=== PATIENT | female | born 1945 | race Caucasian/White ===

== ENCOUNTER → 2021-04-09 15:31 | Outpatient (REF) | payer MEDICARE, SELFPAY ==
[2021-04-09 15:46] LABS: Microscopic, Urine URINE MICROSCOPIC (MICROSCOPIC)
[2021-04-09 15:48] LABS: Appearance,Urine CLEAR (Clear); Bilirubin,Urine Negative (Negative); Blood, Urine TRACE-I (Negative); Color,Urine YELLOW (Yellow); Glucose,Urine (UA) Negative (Negative); Ketones,Urine Negative (Negative); Leukocyte Esterase,Urine Negative (Negative); Nitrate,Urine POSITIVE (Negative); PH,Urine 6.5 (5.0-8.5); Protein,Urine Negative (Negative); Specific Gravity, Urine 1.015 (1.005-1.030)
[2021-04-09 16:02] LABS: Bacteria,Urine 2+ /lpf; RBC,Urine Occasional #/hpf (0-3)
== END ==
LOC: LAB.DROPOF 15:31
PROVIDERS: Visit Provider Internal Medicine Adolescent Medicine
DX: R31.9 Hematuria, unspecified (principal)
CPT/HCPCS: 81001; 87086; 87088; 87186

== ENCOUNTER → 2021-08-09 07:33 | Outpatient (CLI) | payer MEDICARE, SELFPAY ==
[2021-08-09 07:39] LABS: Microscopic, Urine URINE MICROSCOPIC (MICROSCOPIC)
[2021-08-09 08:12] LABS: Basophils # 0.1 K/mm3 (0-0.2); Basophils % 0.6 % (0.1-2.0); Eosinophils # 0.3 K/mm3 (0.0-0.4); Eosinophils % 2.6 % (0.1-12.0); Hematocrit 45.2 % (37.0-47.0); Hemoglobin 15.1 g/dL (12.2-16.2); Lymphocytes # 2.9 K/mm3 (0.7-4.5); Lymphocytes % 25.1 % (10-50); Mean Corpuscular HGB Conc 33.5 g/dL (31.8-35.4); Mean Corpuscular Hemoglobin 32.8 pg (27.0-31.2); Mean Corpuscular Volume 97.9 fl (81-99); Mean Platelet Volume 7.3 fl (7.4-10.4); Monocytes # 0.7 K/mm3 (0.1-1.0); Neutrophils # 7.5 K/mm3 (1.8-7.8); Neutrophils % 65.6 % (37.0-80.0); Platelet Count 449 K/mm3 (142-424); Red Blood Count 4.62 M/mm3 (4.20-5.40); Red Cell Distribution Width 12.3 % (11.5-17.5); White Blood Count 11.4 K/mm3 (4.8-10.8)
[2021-08-09 08:16] LABS: Appearance,Urine CLEAR (Clear); Bilirubin,Urine Negative (Negative); Blood, Urine Negative (Negative); Color,Urine YELLOW (Yellow); Glucose,Urine (UA) Negative (Negative); Ketones,Urine Negative (Negative); Leukocyte Esterase,Urine Negative (Negative); Nitrate,Urine Negative (Negative); Protein,Urine Negative (Negative); Specific Gravity, Urine 1.015 (1.005-1.030); Urobilinogen,Urine 0.2 EU/dl (0.2)
[2021-08-09 08:46] LABS: Erythrocyte Sedimentation Rate 44 mm/hr (0-30)
[2021-08-09 09:08] LABS: Chloride 106 mmol/L (98-107); Sodium 143 mmol/L (136-145)
[2021-08-09 09:09] LABS: Potassium 4.5 mmoL/L (3.5-5.1)
[2021-08-09 09:12] LABS: Anion Gap 14.5 mEq/L (5-15); Blood Urea Nitrogen 23 mg/dl (7-17); Calcium 9.7 mg/dl (8.4-10.2); Carbon Dioxide 27 mmol/L (22.0-30.0); Estimated Glomerular Filt Rate 70 ml/min (>60); GFR (African American) 85 ML/MIN (>60); Glucose 98 mg/dl (74-100)
[2021-08-09 10:55] LABS: Uric Acid 7.1 mg/dl (2.5-6.2)
== END ==
PROVIDERS: Visit Provider Nurse Practitioner Family
DX: I10 Essential (primary) hypertension (principal); E78.5 Hyperlipidemia, unspecified; F03.91 Unspecified dementia, unspecified severity, with behavioral disturbance; R41.841 Cognitive communication deficit; E55.9 Vitamin D deficiency, unspecified
CPT/HCPCS: 80048; 81001; 84550; 85025; 85651

== ENCOUNTER → 2022-03-20 11:28 | Outpatient (CLI) | payer MEDICARE, SELFPAY | PROVIDERS: PCP Internal Medicine Adolescent Medicine; Visit Provider Internal Medicine Adolescent Medicine | DX: Z01.812 Encounter for preprocedural laboratory examination (principal); Z20.822 Contact with and (suspected) exposure to COVID-19 | CPT/HCPCS: C9803; U0003; U0005 ==

== ENCOUNTER 2022-03-22 05:49 | Day surgery (SDC) | payer MEDICARE, MEDICAID, SELFPAY ==
[2022-03-22 06:30] VITALS: BP 152/82; PULSE 74; RESP 18; TEMP 36.2; O2SAT 98; BMI 34.4
--- NOTE | 2022-03-22 07:02 | HMH.ANESCL ---
[facility] Anesthesia Checklist - Patient Identification Patient Identification: Arm Band - Structural Data Admitted From: Home Planned Operative Procedure/s: Removal of pessary Consent for Planned Operative Procedure(s) Verified: Yes - NPO Status Verified Time NPO: 00:00 - Additional verifications Anesthesia Reactions: No Hx Blood Transfusions: No Blood Transfusion Reaction: No - Airway Assessment C-Spine Mobility Assessed: Yes TMJ Mobility Assessed: Yes Dentition: Poor Dentition (Multiple loose teeth, notified daughter of risk of detal damage. Daughter agrees to proceed.) - Neurological Assessment Level of Consciousness: Awake Hx Seizures: No Numbness or tingling in extremities: No - Anesthesia Plan Anesthesia Risk discussed: Yes Anesthesia Plan: Verified ASA Class: II Anesthesia Type: MAC [facility] History I have reviewed the patient's past medical history: Yes Medical History: Reports:: Dementia Denies:: Cancer, Diabetes Mellitus Type 1, Diabetes Mellitus Type 2, Internal Pacemaker, MRSA, Seizures *Have you ever received a pneumonia vaccine?: Yes *Have you received a flu vaccine this season?: Yes Other Medical History: Denies: Blood Transfusion Reaction Anesthesia experience/problems:: None Other Surgeries: No: Pacemaker Amputation: No Fractures: No - *Social History Last grade of school completed: High school graduate Smoking Status: Former smoker Alcohol Intake: never Substance Use Type: denies use *Occupational Status:: retired Housing: house *Travel in the last 8 weeks: None Family Hx:: No significant family history
[2022-03-22 07:49] VITALS: BP 138/75; PULSE 67; RESP 16; TEMP 35.8; O2SAT 100
[2022-03-22 08:04] VITALS: BP 128/55; PULSE 64; RESP 17; O2SAT 97
--- NOTE | 2022-03-22 08:13 | P.OP_ITS ---
Date of procedure: 03/22/22 Pre-op Diagnosis:: 1. Retained pessary Post-op Diagnosis:: 1. Retained pessary Procedure performed:: 1. Removal of pessary 2. Exam under anesthesia Surgeon:: Pam Vincent DO Staff Design Engineer(s):: N/a HORSERADISH GRINDER:: Jorge Deras Anesthesia: MAC Estimated blood loss (mL): 0 Clinical Note:: Ms Irene Matias is a 76 yo female who to [facility] for scheduled procedure. She was seen in the office on 02/23, with her daughter, from [facility] for pessary removal. Patient has had a pessary in place for pelvic organ prolapse for about 3.5 years with no pessary care. Her daughter noticed a green/dark colored discharge on her pad. Patient has dementia. Operative findings:: Vulva grossly normal. Multiple shallow ulcerations and erosions of vaginal mucosa noted Operative note:: Risks, benefits and alternatives were discussed with the patient. Risks include bleeding, infection and VTE. Patient voiced understanding and agreed to proceed. She was wheeled back to the operating room and placed under MAC without difficulty. She was placed in the dorsal lithotomy position and prepped and draped in normal sterile fashion. Separation of the labia revealed portion of donut pessary. Double tooth tenaculum was used to grasp the pessary. A second single tooth tenaculum was also used to grasp the pessary. Pessary was removed with gentle rocking motion. Malodorous green vaginal discharge was noted coming from the vagina and covering the pessary. Vagina was irrigated with sterile water. Right angle retractors were placed and exam was performed. Multiple areas of shallow ulcerations/erosions were noted. Small amount of bleeding from vaginal pond and introitus noted. Vagina was irrigated again. Hemostasis was noted. Patient was awaken from anesthesia without difficulty. She was transported to the recovery room in stable condition. Patient will be discharged home when awake and ambulating. She was given postop instructions and a prescription for Clindamycin vaginal cream. Condition: stable Disposition: same day Complications:: None
[2022-03-22 08:19] VITALS: BP 124/71; PULSE 69; RESP 17; O2SAT 97
[2022-03-22 08:27] VITALS: BP 124/76; PULSE 78; RESP 18; O2SAT 100
== END 2022-03-22 08:27 ==
LOC: OR 05:53
PROVIDERS: PCP Internal Medicine Adolescent Medicine; Visit Provider Obstetrics & Gynecology
DX: T19.2XXA Foreign body in vulva and vagina, initial encounter (principal); Z96.0 Presence of urogenital implants; L30.4 Erythema intertrigo; Z79.899 Other long term (current) drug therapy
CPT/HCPCS: 57415; 96374

== ENCOUNTER → 2022-04-07 20:10 | Outpatient (CLI) | payer MEDICARE, MEDICAID, SELFPAY ==
[2022-04-07 20:57] LABS: Microscopic, Urine URINE MICROSCOPIC (MICROSCOPIC)
[2022-04-07 21:12] LABS: Appearance,Urine CLOUDY (Clear); Bilirubin,Urine Negative (Negative); Blood, Urine 1+ (Negative); Color,Urine YELLOW (Yellow); Glucose,Urine (UA) Negative (Negative); Ketones,Urine Negative (Negative); Leukocyte Esterase,Urine 1+ (Negative); Nitrate,Urine POSITIVE (Negative); Protein,Urine 2+ (Negative); Urobilinogen,Urine 0.2 EU/dl (0.2)
[2022-04-07 21:14] LABS: WBC,Urine TNTC #/hpf (0-3)
== END ==
PROVIDERS: PCP Nurse Practitioner Family; Visit Provider Nurse Practitioner Family
DX: N39.0 Urinary tract infection, site not specified (principal)
CPT/HCPCS: 81001; 87086

== ENCOUNTER 2022-04-08 22:23 | Inpatient (IN) | payer MEDICARE, MEDICAID, SELFPAY ==
[2022-04-08] VITALS (7 sets, daily range): BP systolic 61–82; BP diastolic 31–50; PULSE 94–118; RESP 22; TEMP 39.8; O2SAT 95; BMI 29.2
--- NOTE | 2022-04-08 22:11 | XR_ITS ---
PROCEDURE INFORMATION: Exam: XR Chest Exam date and time: 04/08/2022 10:36 PM Age: 76 years old Clinical indication: Fever TECHNIQUE: Imaging protocol: Radiologic exam of the chest. Views: 1 view. COMPARISON: No relevant prior studies available. FINDINGS: Lungs: Streaky basilar and peripheral airspace opacities. No lobar consolidation. Pleural spaces: No pneumothorax. Heart/Mediastinum: No cardiomegaly. Bones/joints: Degenerative changes of the shoulders. IMPRESSION: Streaky airspace opacities which are likely atelectatic.
[2022-04-08 22:26] LABS: Coronavirus 19, PCR Not Detected (NotDetected); Influenza A, PCR Not Detected (NotDetected); Influenza B, PCR Not Detected (NotDetected); Microscopic, Urine URINE MICROSCOPIC (MICROSCOPIC)
[2022-04-08 22:27] LABS: Basophils # 0.1 K/mm3 (0-0.2); Basophils % 0.4 % (0.1-2.0); Eosinophils # 0.1 K/mm3 (0.0-0.4); Eosinophils % 0.4 % (0.1-12.0); Hematocrit 45.2 % (37.0-47.0); Hemoglobin 14.2 g/dL (12.2-16.2); Lymphocytes # 0.6 K/mm3 (0.7-4.5); Lymphocytes % 4.4 % (10-50); Mean Corpuscular HGB Conc 31.4 g/dL (31.8-35.4); Mean Corpuscular Hemoglobin 31.6 pg (27.0-31.2); Mean Corpuscular Volume 100.4 fl (81-99); Mean Platelet Volume 8.3 fl (7.4-10.4); Monocytes # 0.5 K/mm3 (0.1-1.0); Monocytes % 3.5 % (1.7-9.3); Neutrophils # 12.4 K/mm3 (1.8-7.8); Neutrophils % 91.4 % (37.0-80.0); Platelet Count 276 K/mm3 (142-424); Red Cell Distribution Width 13.6 % (11.5-17.5); White Blood Count 13.6 K/mm3 (4.8-10.8)
[2022-04-08 22:32] LABS: MANUAL DIFFERENTIAL MANUAL DIFFERENTIAL (MANUAL DIFF)
[2022-04-08 22:33] LABS: Appearance,Urine CLOUDY (Clear); Bilirubin,Urine Negative (Negative); Blood, Urine 2+ (Negative); Color,Urine YELLOW (Yellow); Glucose,Urine (UA) Negative (Negative); Ketones,Urine TRACE (Negative); Leukocyte Esterase,Urine 2+ (Negative); Nitrate,Urine POSITIVE (Negative); Protein,Urine 2+ (Negative); Urobilinogen,Urine 0.2 EU/dl (0.2)
[2022-04-08 22:35] LABS: WBC,Urine TNTC #/hpf (0-3)
[2022-04-08 22:36] LABS: Alanine Aminotransferase 30 U/L (12-78); Albumin Level 3.2 g/dl (3.5-5.0); Alkaline Phosphatase 151 U/L (38-126); Anion Gap 13.2 mEq/L (5-15); Aspartate Amino Transferase 76 U/L (14-36); Bilirubin,Total 0.3 mg/dl (0.2-1.3); Blood Urea Nitrogen 25 mg/dl (7-17); Calcium 8.8 mg/dl (8.4-10.2); Carbon Dioxide 21 mmol/L (22.0-30.0); Chloride 109 mmol/L (98-107); Creatinine Clearance Estimated 38 mL/min (50-200); Estimated Glomerular Filt Rate 29 ml/min (>60); GFR (African American) 36 ML/MIN (>60); Globulin 3.2 g/dL (1.3-3.2); Glucose 118 mg/dl (74-100); Potassium 3.2 mmoL/L (3.5-5.1); Sodium 140 mmol/L (136-145); Total Protein,Serum 6.4 g/dl (6.3-8.2)
--- NOTE | 2022-04-08 22:40 | HMH.EDAMS ---
ED Disposition Clinical Impression: Severe sepsis with acute organ dysfunction, Septic shock, CHAI (acute kidney injury), Elevated troponin UTI (urinary tract infection) Qualifiers: Urinary tract infection type: site unspecified Hematuria presence: without hematuria Qualified Code(s): N39.0 - Urinary tract infection, site not specified Disposition: Admitted As Inpatient Condition on Discharge: Serious Referrals: Jeremy Yoder MD [Primary Care Provider] - - Critical Care Critical Care Time: Yes Attestation: On 04/08/22, the high probability of a clinically significant, sudden or life threatening deterioration of the following system(s) required my full and direct attention, intervention and personal management. The time I documented below is in addition to time spent performing reported procedures but includes the following listed in this critical care notation. Total Critical Care Time: 60 Vital system(s) involved:: Renal Failure, Shock (Septic) My critical care processes included: Assessment & monitoring of V/S, Initial and Re-exams, Data Review/Interpretation, Coordinating Care, Medication Orders and management, Documentation Medical Decision Making - Medical Records Medical records reviewed: Yes: I reviewed the patient's medical records. - Huang Inquiry Pt receiving controlled substance: No Vital Signs: 04/08/22 21:59 04/08/22 22:30 04/08/22 22:53 Temperature 103.7 F H Temperature Source Rectal Pulse Rate 109 H 100 H Pulse Rate [Right] 118 H Respiratory Rate 22 Blood Pressure 61/31 L 73/36 L Blood Pressure [Right Arm] 82/50 L Blood Pressure Mean 41 48 Blood Pressure Mean [Right Arm] 60 02 Sat by Pulse Oximetry 95 Oxygen Delivery Method Room Air 04/08/22 23:00 04/08/22 23:11 04/08/22 23:13 Temperature Temperature Source Pulse Rate 99 H 98 H 96 H Pulse Rate [Right] Respiratory Rate Blood Pressure 74/39 L 73/37 L 68/39 L Blood Pressure [Right Arm] Blood Pressure Mean 54 47 46 Blood Pressure Mean [Right Arm] 02 Sat by Pulse Oximetry 95 95 95 Oxygen Delivery Method 04/08/22 23:16 Temperature Temperature Source Pulse Rate 94 H Pulse Rate [Right] Respiratory Rate Blood Pressure 67/34 L Blood Pressure [Right Arm] Blood Pressure Mean 50 Blood Pressure Mean [Right Arm] 02 Sat by Pulse Oximetry 95 Oxygen Delivery Method - Lab Data Lab results reviewed: Yes: I reviewed the patient's lab results. Lab Results 04/08/22 22:11: WBC 13.6 H, RBC 4.50, Hgb 14.2, Hct 45.2, MCV 100.4 H, MCH 31.6 H, MCHC 31.4 L, RDW 13.6, Plt Count 276, MPV 8.3, Neut % (Auto) 91.4 H, Lymph % (Auto) 4.4 L, [place] % (Auto) 3.5, Eos % (Auto) 0.4, Baso % (Auto) 0.4, Neut # (Auto) 12.4 H, Lymph # (Auto) 0.6 L, [place] # (Auto) 0.5, Eos # (Auto) 0.1, Baso # (Auto) 0.1, Total Counted 100, Neutrophils % (Manual) 93 H, Lymphocytes % (Manual) 5 L, Monocytes % (Manual) 2, Platelet Estimate Normal, RBC Morphology Not Reportable, Macrocytosis 1+, ESR 44 H 04/08/22 22:11: Sodium 140, Potassium 3.2 L, Chloride 109 H, Carbon Dioxide 21 L, Anion Gap 13.2, BUN 25 H, Creatinine 1.70 H, Estimated Creat Clear 38, Estimated GFR 29 L, Est GFR ( Amer) 36 L, Glucose 118 H, Calcium 8.8, Total Bilirubin 0.3, AST 76 H, ALT 30, Alkaline Phosphatase 151 H, C-Reactive Protein 309.1 H, Total Protein 6.4, Albumin 3.2 L, Globulin 3.2, Albumin/Globulin Ratio 1.0 L, Procalcitonin 31.7 H 04/08/22 22:11: Urine Color Yellow, Urine Appearance Cloudy, Urine pH 6.0, Ur Specific [place] 1.020, Urine Protein 2+, Urine Glucose (UA) Negative, Urine Ketones Trace, Urine Blood 2+, Urine Nitrate Positive, Urine Bilirubin Negative, Urine Urobilinogen 0.2, Ur Leukocyte Esterase 2+ A, Urine RBC 10-20, Urine WBC Tntc 04/08/22 22:11: Lactate 2.9 H 04/08/22 22:11: SARS-CoV-2 (PCR) Not detected, Influenza A Untype (PCR) Not detected, Influenza Type B (PCR) Not detected 04/08/22 22:11: Troponin I 0.10 H Result diagrams: 04/08/22 22
--- NOTE | 2022-04-08 22:41 | ECG_ITS ---
APPROVED REPORT Exam: Resting ECG HR:96 bpm ECG Measurements Heart Rate 96 AXES DE 180 P 53 QRSd 104 QRS -32 QT 384 T 17 QTc 438 Conclusion SINUS RHYTHM LEFT AXIS DEVIATION [QRS AXIS < -30] Late r wave progression UNCONFIRMED REPORT Electronically signed by : Jeremy Yoder MD 04/10/2022 21:29:24
[2022-04-08 22:42] LABS: C-Reactive Protein 309.1 mg/L (0-4); Lactic Acid 2.9 mmol/L (0.7-2.1)
[2022-04-08 22:53] LABS: Procalcitonin 31.7 ng/mL (0.0-2.0)
[2022-04-08 22:56] LABS: Erythrocyte Sedimentation Rate 44 mm/hr (0-30)
[2022-04-08 23:00] LABS: Lymphocytes % 5 % (10-50); Macrocytosis 1+; Monocytes % 2 % (2-9); Neutrophils % 93 % (42-76); Platelet Estimate Normal; Total Cells Counted 100
--- NOTE | 2022-04-08 23:21 | PC.NURSE ---
notified of blood pressures, no new orders @ this time
--- NOTE | 2022-04-08 23:54 | PC.NURSE ---
Pt son arrived in ER. Pt addressed son, knew who he was and appeared to be happy to see him. Updated son on pt condition.
[2022-04-09] VITALS (17 sets, daily range): BP systolic 92–161; BP diastolic 44–89; PULSE 68–98; RESP 16–20; TEMP 36.7–37.5; O2SAT 94–99; BMI 28.8; BMI 28.7
[2022-04-09 00:28] LABS: Reflex Lactic Add Lactic Reflex
--- NOTE | 2022-04-09 00:31 | PC.NURSE ---
PT ARRIVED VIA STRETCHER FROM ED W/STAFF @ [phone]
[2022-04-09 01:46] LABS: Lactic Acid Follow Up (RFLX 1) 1.5 mmol/L (0.7-2.1)
[2022-04-09 01:59] LABS: Troponin I 0.08 ng/ml (0.00-0.034)
[2022-04-09 05:06] LABS: Basophils # 0.1 K/mm3 (0-0.2); Basophils % 0.4 % (0.1-2.0); Eosinophils # 0.1 K/mm3 (0.0-0.4); Eosinophils % 0.3 % (0.1-12.0); Hematocrit 42.2 % (37.0-47.0); Hemoglobin 13.4 g/dL (12.2-16.2); Lymphocytes # 1.2 K/mm3 (0.7-4.5); Mean Corpuscular HGB Conc 31.8 g/dL (31.8-35.4); Mean Corpuscular Hemoglobin 31.7 pg (27.0-31.2); Mean Corpuscular Volume 99.5 fl (81-99); Mean Platelet Volume 8.6 fl (7.4-10.4); Monocytes # 1.1 K/mm3 (0.1-1.0); Monocytes % 3.6 % (1.7-9.3); Neutrophils # 28.3 K/mm3 (1.8-7.8); Neutrophils % 91.8 % (37.0-80.0); Platelet Count 348 K/mm3 (142-424); Red Blood Count 4.24 M/mm3 (4.20-5.40); Red Cell Distribution Width 13.6 % (11.5-17.5)
[2022-04-09 05:09] LABS: White Blood Count 30.8 K/mm3 (4.8-10.8)
[2022-04-09 05:26] LABS: Anion Gap 9.2 mEq/L (5-15); Blood Urea Nitrogen 26 mg/dl (7-17); Calcium 8.1 mg/dl (8.4-10.2); Carbon Dioxide 20 mmol/L (22.0-30.0); Chloride 113 mmol/L (98-107); Creatinine Clearance Estimated 45 mL/min (50-200); Estimated Glomerular Filt Rate 37 ml/min (>60); GFR (African American) 44 ML/MIN (>60); Potassium 3.2 mmoL/L (3.5-5.1); Sodium 139 mmol/L (136-145)
[2022-04-09 05:29] LABS: Glucose 154 mg/dl (74-100)
[2022-04-09 05:38] LABS: Troponin I 0.07 ng/ml (0.00-0.034)
--- NOTE | 2022-04-09 05:42 | PC.NURSE ---
Pt can state name only. Will yell profanity at staff. Remains on Levophed gtt. Currently infusing @ 8 mcg/min. VS currently stable. She is afebrile at this time. Remains on RA. LUngs are diminished t/o. F/C draining to bedside with cloudy, purulent, urine. Spoke with daughter who is POA. Pt code status is DNR and on chart.
--- NOTE | 2022-04-09 08:33 | P.CONPHA_ITS ---
[facility] Pharmacy VTE Monitoring - Patient Demographics Admission date: 04/09/22 Report Date: 04/09/22 Time: 08:33 Allergies/Adverse Reactions: Patient Allergies No Known Allergies Allergy (Verified 02/23/22 10:30) Height: 1.68 m Weight: 81.193 kg Patient Problems: Current Active Problems UTI (urinary tract infection) (Acute) Severe sepsis with acute organ dysfunction (Acute) Septic shock (Acute) CHAI (acute kidney injury) (Acute) Elevated troponin (Acute) - VTE Risk Labs: VTE Related Lab Results Hgb 13.4 g/dL (12.2-16.2) 04/09/22 04:55 Hct 42.2 % (37.0-47.0) 04/09/22 04:55 Plt Count 348 K/mm3 (142-424) D 04/09/22 04:55 BUN 26 mg/dl (7-17) H 04/09/22 04:55 Creatinine 1.40 mg/dl (0.52-1.04) H 04/09/22 04:55 Estimated Creat Clear 45 mL/min (50-200) 04/09/22 04:55 VTE Risk Level: Moderate Risk Clinical Trial Participant: No - Prophylaxis VTE Prophylaxis Ordered?: Yes Types of VTE Prophylaxis: TEDS Knee High
--- NOTE | 2022-04-09 08:46 | SW/DCPLANNER ---
Addendum entered by Alia Munoz 04/11/22 10:08: I have updated Chelsea w/ [facility] that patient could return later today or tomorrow. Patient will require a PICC line for IV Rocephin prior to discharge. Patient will require a COVID swab prior to discharge. Original Note: This patient currently resides at [facility]: per Chelsea patient is ICF level of care. I will continue to follow up with Chelsea until patient is medically stable for discharge.
--- NOTE | 2022-04-09 08:48 | HMH.HP ---
*Admission Date: 04/09/22 *Chief complaint: Fever/lethargy *History of present illness: 76-year-old resident of the [facility] who was sent to the ER because of fever of 103 degrees and some lethargy. In the ER she was found to meet sepsis criteria with elevated white count, fever, tachycardia, site of infection seems to be urinary tract. Admitted to the hospital with ceftriaxone therapy and fluids. [facility] History I have reviewed the patient's past medical history: Yes Medical History: Reports:: Dementia, Hyperlipidemia, Hypertension Denies:: Cancer, Diabetes Mellitus Type 1, Diabetes Mellitus Type 2, Internal Pacemaker, MRSA, Seizures *Have you ever received a pneumonia vaccine?: Yes *Have you received a flu vaccine this season?: No Other Medical History: Denies: Blood Transfusion Reaction Other Surgeries: No: Pacemaker Amputation: No Fractures: No - *Social History Smoking Status: Former smoker Alcohol Intake: never Substance Use Type: denies use *Occupational Status:: retired Housing: house *Travel in the last 8 weeks: None Family Hx:: Unable to obtain Review of Systems - Review of Systems Review of systems:: pertinent systems reviewed and negative unless documented below - *Neurologic Reports weakness, Denies localized weakness, Denies headache(s), Denies seizure-like activity Meds Home Medications Medication Instructions Recorded Confirmed Type Acetaminophen [Acetaminophen Extra 500 mg PO DAILY 03/22/22 04/08/22 History Strength] Aspirin [Aspirin 81mg chewable 81 mg PO DAILY 03/22/22 04/08/22 History tab] Colchicine 0.6 mg PO DAILY 03/22/22 04/08/22 History Divalproex Sodium [Depakote] 125 mg PO BID 03/22/22 04/09/22 History Donepezil HCl [Aricept] 10 mg PO DAILY 03/22/22 04/08/22 History Hydrocod/Acet 5/325 mg [[place] 1 tab PO Q8HP PRN 03/22/22 04/09/22 History 5/325mg tablet] LORazepam [Lorazepam 0.5mg Tablet] 0.5 mg PO DAILY 03/22/22 04/08/22 History Memantine HCl [Namenda Titration 1 each PO DAILY 03/22/22 04/08/22 History Pack] Metoprolol Succinate [Metoprolol 100 mg PO DAILY 03/22/22 04/09/22 History Succinate 100mg Tablet*] Mirabegron [Myrbetriq] 50 mg PO DAILY 03/22/22 04/09/22 History Potassium Chloride [Klor-con 20 20 meq PO DAILY 03/22/22 04/09/22 History mEq tablet] Quetiapine Fumarate [Seroquel 50 50 mg PO BID 03/22/22 04/09/22 History mg Tablets] gemfibroziL [Gemfibrozil] 600 mg PO BID 03/22/22 04/09/22 History Cefdinir [Omnicef 300mg Capsule] 300 mg PO BID 04/09/22 04/09/22 History Clindamycin Phosphate [Clindesse] 5 gm VG DAILY 04/09/22 04/09/22 History Pantoprazole Sodium 40 mg PO DAILY 04/09/22 04/09/22 History hydroCHLOROthiazide 12.5 mg PO DAILY 04/09/22 04/09/22 History [Hydrochlorothiazide 12.5mg Tab] Allergies Allergy/AdvReac Type Severity Reaction Status Date / Time No Known Allergies Allergy Verified 02/23/22 10:30 Exam Vital signs and Labs for Last 24 Hours: Temp Pulse Resp BP Pulse Ox 98.2 F 76 16 110/51 L 96 04/09/22 08:00 04/09/22 04:00 04/09/22 04:00 04/09/22 04:00 04/09/22 04:00 Laboratory Results - last 24 hr 04/08/22 22:11: WBC 13.6 H, RBC 4.50, Hgb 14.2, Hct 45.2, MCV 100.4 H, MCH 31.6 H, MCHC 31.4 L, RDW 13.6, Plt Count 276, MPV 8.3, Neut % (Auto) 91.4 H, Lymph % (Auto) 4.4 L, [place] % (Auto) 3.5, Eos % (Auto) 0.4, Baso % (Auto) 0.4, Neut # (Auto) 12.4 H, Lymph # (Auto) 0.6 L, [place] # (Auto) 0.5, Eos # (Auto) 0.1, Baso # (Auto) 0.1, Total Counted 100, Neutrophils % (Manual) 93 H, Lymphocytes % (Manual) 5 L, Monocytes % (Manual) 2, Platelet Estimate Normal, RBC Morphology Not Reportable, Macrocytosis 1+, ESR 44 H 04/08/22 22:11: Sodium 140, Potassium 3.2 L, Chloride 109 H, Carbon Dioxide 21 L, Anion Gap 13.2, BUN 25 H, Creatinine 1.70 H, Estimated Creat Clear 38, Estimated GFR 29 L, Est GFR ( Amer) 36 L, Glucose 118 H, Calcium 8.8, Total Bilirubin 0.3, AST 76 H, ALT 30, Alkaline Phosph
--- NOTE | 2022-04-09 14:38 | PC.NURSE ---
pt's pw is: jessica
--- NOTE | 2022-04-09 14:41 | PC.NURSE ---
late entry: when family was in room rounded on patient, updated family on plan of care, diagnosis and medications patients are getting. no concerns or further questions at this time. obtained a drink for patient. encouraged them to ring out with any needs or questions. bed alarm in place.
--- NOTE | 2022-04-09 17:53 | PC.NURSE ---
Pt has been confused and uncooperative throughout the shift. She has pulled out multiple IV's and is refusing to keep her groundwater monitoring technician on. She has a stahl to bedside draining purulent, straw colored urine. She ambulated to the bathroom with assist x1 in the am but has since been incontinent of bowels. Family has been to visit and was updated on poc. Bed is locked and in the lowest position, call light is within reach.
[2022-04-10] VITALS (7 sets, daily range): BP systolic 110–149; BP diastolic 59–94; PULSE 88–136; RESP 16–18; TEMP 36.5–37.1; O2SAT 94–99; BMI 29.3
--- NOTE | 2022-04-10 05:23 | PC.NURSE ---
pt rested well through the night, pt is confused and alert to name only, pt will cuss at staff when trying to moved, clean or assist with care, skin warm and dry, f/c to bsd with clear yellow urine noted, pt is turn q2 with some redness noted to coccyx area, VSS, lung sounds diminished with some expiratory wheezing noted at times, 02 sats remain 97-99 on room air, no other issues or concerns noted at this time, no changes from previous assessment.
[2022-04-10 06:50] LABS: Chloride 113 mmol/L (98-107); Sodium 143 mmol/L (136-145)
[2022-04-10 06:53] LABS: Alanine Aminotransferase 23 U/L (12-78); Alkaline Phosphatase 110 U/L (38-126); Anion Gap 11.9 mEq/L (5-15); Aspartate Amino Transferase 62 U/L (14-36); Blood Urea Nitrogen 25 mg/dl (7-17); Calcium 7.6 mg/dl (8.4-10.2); Carbon Dioxide 21 mmol/L (22.0-30.0); Creatinine Clearance Estimated 64 mL/min (50-200); Estimated Glomerular Filt Rate 54 ml/min (>60); GFR (African American) 66 ML/MIN (>60); Glucose 94 mg/dl (74-100)
[2022-04-10 06:54] LABS: Albumin Level 2.8 g/dl (3.5-5.0); Albumin/Globulin Ratio 0.9 (1.1-1.8); Globulin 3.1 g/dL (1.3-3.2); Total Protein,Serum 5.9 g/dl (6.3-8.2)
[2022-04-10 06:56] LABS: Bilirubin,Total < 0.1 mg/dl (0.2-1.3)
[2022-04-10 06:59] LABS: Potassium 2.9 mmoL/L (3.5-5.1)
[2022-04-10 07:09] LABS: Basophils # 0.2 K/mm3 (0-0.2); Basophils % 1.3 % (0.1-2.0); Eosinophils % 0.2 % (0.1-12.0); Hemoglobin 12.7 g/dL (12.2-16.2); Lymphocytes # 1.1 K/mm3 (0.7-4.5); Lymphocytes % 7.9 % (10-50); Mean Corpuscular Hemoglobin 31.3 pg (27.0-31.2); Mean Corpuscular Volume 101.2 fl (81-99); Monocytes # 0.6 K/mm3 (0.1-1.0); Monocytes % 4.6 % (1.7-9.3); Neutrophils # 11.8 K/mm3 (1.8-7.8); Platelet Count 240 K/mm3 (142-424); Red Blood Count 4.05 M/mm3 (4.20-5.40); Red Cell Distribution Width 13.8 % (11.5-17.5); White Blood Count 13.7 K/mm3 (4.8-10.8)
[2022-04-10 07:14] LABS: MANUAL DIFFERENTIAL MANUAL DIFFERENTIAL (MANUAL DIFF)
[2022-04-10 08:09] LABS: Anisocytosis 1+; Eosinophils % 1 % (0-3); Hypochromasia 1+; Lymphocytes % 8 % (10-50); Macrocytosis 1+; Monocytes % 2 % (2-9); Neutrophils % 86 % (42-76); Platelet Estimate Normal; Total Cells Counted 100
--- NOTE | 2022-04-10 10:00 | PC.NURSE ---
Patient pulled out IV this AM and refused all meds. Provider on floor making rounds went to speak with patient. Patient refused meds verbally to provider. Provider cleared patient from IV Potassium due to no IV access and patient refusing care. However, provider gave v.o. for Rocephin to be given IM if patient continues to refuse IV. Patients daughter called and was in parking lot and when arrived to room patient agreed to take medication but refused IV.
--- NOTE | 2022-04-10 11:03 | DIET.NUTRFU ---
spoke to provider today during rounds, patient is tolerating current diet MSOFT ground. Her baseline at [place] is regular. Possible discharge today. Dr is okay to change to regular to monitor tolerance and prepare for discharge. She did refuse breakfast today and pull out her IV. he was martinez this morning. Will notify kitchen of changes.
--- NOTE | 2022-04-10 11:53 | HMH.ACPN2 ---
Internal Medicine - PN: Subj *Date: 04/10/22 *Time: 18:08 Interval history: No acute events overnight. Remained afebrile. Labs improving. Blood cultures returned positive for E. coli. Patient uncooperative this morning, not wanting to take her medication. Answers that she wants me to leave the room when I asked questions. Has no complaints. Exam Vital signs and Labs for Last 24 Hours: Temp Pulse Resp BP Pulse Ox 98.7 F 136 H 17 116/78 96 04/10/22 11:03 04/10/22 11:03 04/10/22 11:03 04/10/22 11:03 04/10/22 11:03 Laboratory Results - last 24 hr 04/10/22 05:39: WBC 13.7 H D, RBC 4.05 L, Hgb 12.7, Hct 41.0, MCV 101.2 H, MCH 31.3 H, MCHC 31.0 L, RDW 13.8, Plt Count 240 D, MPV 9.0, Neut % (Auto) 86.0 H, Lymph % (Auto) 7.9 L, [place] % (Auto) 4.6, Eos % (Auto) 0.2, Baso % (Auto) 1.3, Neut # (Auto) 11.8 H, Lymph # (Auto) 1.1, [place] # (Auto) 0.6, Eos # (Auto) 0.0, Baso # (Auto) 0.2, Total Counted 100, Neutrophils % (Manual) 86 H, Band Neutrophils % 3.0, Lymphocytes % (Manual) 8 L, Monocytes % (Manual) 2, Eosinophils % (Manual) 1, Platelet Estimate Normal, Hypochromasia 1+, Anisocytosis 1+, Macrocytosis 1+ 04/10/22 05:39: Sodium 143, Potassium 2.9 L*, Chloride 113 H, Carbon Dioxide 21 L, Anion Gap 11.9, BUN 25 H, Creatinine 1.00 D, Estimated Creat Clear 64, Estimated GFR 54 L, Est GFR ( Amer) 66 D, Glucose 94, Calcium 7.6 L, Total Bilirubin < 0.1 L, AST 62 H, ALT 23, Alkaline Phosphatase 110, Total Protein 5.9 L, Albumin 2.8 L D, Globulin 3.1, Albumin/Globulin Ratio 0.9 L I & O for Last 24 hours: Intake & Output 04/07/22 04/08/22 04/09/22 04/10/22 23:59 23:59 23:59 23:59 Intake Total 737 / 737 1956 Output Total 850 / 1050 400 / 400 Balance -113 / -313 1557 / 1557 Weight 82.1 kg 81 kg 82.752 kg Microbiology Reports for the Last 24 Hours: Microbiology 04/08/22 22:11 Blood Blood Culture - Preliminary Gram Negative Rods 04/08/22 22:11 Blood Blood Culture - Preliminary Gram Negative Rods 04/08/22 22:11 Urine,Catheterized Urine Culture - Preliminary Narrative: - Constitutional No acute distress, chronically ill appearing, not answering questions, refusing meds on exam. uncooperative. - *Routine HEENT Exam Head: Present: normocephalic Eye: Present: EOMI, PERRL ENT: Present: mucous membranes dry - *Routine Neck Exam Present: supple. Absent: lymphadenopathy - *Routine Respiratory Exam Present: rhonchi - *Routine Cardiovascular Exam Present: RRR - *Routine Abdominal Exam Present: soft, normoactive bowel sounds, non tender - *Routine Extremities Exam Absent: cyanosis, clubbing, edema - *Routine Skin Exam Present: warm. Absent: rash - *Routine Neurological Exam Present: alert, oriented to self Assessment and Plan (1) E. coli sepsis Status: Acute Category: Medical Code(s): A41.51 - Sepsis due to Escherichia coli [E. coli] (2) Severe sepsis with acute organ dysfunction Status: Acute Category: Medical Code(s): A41.9 - Sepsis, unspecified organism; R65.20 - Severe sepsis without septic shock (3) CHAI (acute kidney injury) Status: Acute Category: Medical Code(s): N17.9 - Acute kidney failure, unspecified (4) Septic shock Status: Acute Category: Medical Code(s): A41.9 - Sepsis, unspecified organism; R65.21 - Severe sepsis with septic shock (5) UTI (urinary tract infection) Status: Acute Qualifiers: Urinary tract infection type: site unspecified Hematuria presence: without hematuria Qualified Code(s): N39.0 - Urinary tract infection, site not specified Category: Medical Code(s): N39.0 - Urinary tract infection, site not specified (6) Dementia with behavioral disturbance Status: Chronic Category: Medical Code(s): F03.91 - Unspecified dementia with behavioral disturbance - Assessment and plan all Dx Assessment and Plan for all problems:: 80-y
--- NOTE | 2022-04-10 20:48 | PC.NURSE ---
Patient VSS, continues to refuse IV access. Shows no s/s of acute distress noted, call light in reach, bed at lowest level for safety; will continue to monitor.
[2022-04-11] VITALS: BP 160/89; PULSE 89; RESP 18; TEMP 36.9; O2SAT 99
--- NOTE | 2022-04-11 | PC.NURSE ---
Verified with Macho from nightwatch proper way to mix Rocephin IM. Mix 2.1 ml of NS into each 1gm vial of Rocephin for a total of 4.2ml to be given IM. Read back, verified, and carried out.
[2022-04-11 04:00] VITALS: BP 145/74; PULSE 88; RESP 18; TEMP 36.7; O2SAT 98
[2022-04-11 08:00] VITALS: BP 111/70; PULSE 80; RESP 16; TEMP 36.4; O2SAT 97
--- NOTE | 2022-04-11 09:26 | XR_ITS ---
FINAL REPORT CLINICAL HISTORY: Confirm PICC line placement COMPARISON: 04/08/2022 FINDINGS: SINGLE-VIEW CHEST The heart size is normal. The mediastinum is normal. Left PICC line tip terminates in the SVC. The lungs are underinflated. The previously identified atelectasis at the right base has improved. There is new, left lower lobe atelectasis. There is no pneumothorax. IMPRESSION: Left PICC line tip terminates in the SVC. New left lower lobe atelectasis. Reviewed, Interpreted and Dictated by Sameer Lozano MD Transcribed by Kiley Connor Authenticated and [facility]
--- NOTE | 2022-04-11 09:41 | PC.NURSE ---
updated patient family on plan of care. picc line, dc of favio and possible discharge back to snf
--- NOTE | 2022-04-11 11:41 | PC.NURSE ---
PER Sharona NARAYAN, RN [phone]: NO ACUTE CHANGE. PT HAS BEEN ENCOURAGED TO TURN Q2H. HAN IN PLACE DRAINING CLEAR YELLOW URINE. BED ALARM ON FOR PATIENT SAFETY. CALL LIGHT WITHIN REACH.
--- NOTE | 2022-04-11 12:00 | P.PN_ITS ---
Subjective *Date: 04/11/22 *Time: 12:00 Interval history: Patient is remained stable overnight. No oxygen requirement. Still continues to be demented but is little bit less combative today. Medical Exam Vital signs and Labs for Last 24 Hours: Temp Pulse Resp BP Pulse Ox 97.6 F 80 16 111/70 97 04/11/22 08:00 04/11/22 08:00 04/11/22 08:00 04/11/22 08:00 04/11/22 08:00 Laboratory Results - last 24 hr 04/08/22 22:11: Urine Color Yellow, Urine Appearance Cloudy, Urine pH 6.0, Ur Specific [place] 1.020, Urine Protein 2+, Urine Glucose (UA) Negative, Urine Ketones Trace, Urine Blood 2+, Urine Nitrate Positive, Urine Bilirubin Negative, Urine Urobilinogen 0.2, Ur Leukocyte Esterase 2+ A, Urine RBC 10-20, Urine WBC Tntc I & O for Labs for Last 24 Hours: Intake & Output 04/09/22 04/10/22 04/11/22 04/12/22 11:59 11:59 11:59 11:59 Intake Total 0 / 0 2694 / 2694 480 / 480 Output Total 100 / 100 1150 / 1150 1575 / 1575 Balance -100 / -100 1544 / 1544 -1095 / -1095 Weight 178 lb 9.191 oz 182 lb 7 oz Microbiology Reports for the Last 24 Hours: Microbiology 04/08/22 22:11 Urine,Catheterized Urine Culture - Preliminary Gram Negative Rods 04/08/22 22:11 Blood Blood Culture - Preliminary Gram Negative Rods 04/08/22 22:11 Blood Blood Culture - Preliminary Gram Negative Rods Comment:: Patient is more pleasant and cooperative, does appear to be pale. Lungs are clear however, heart rate regular. Abdomen soft. No significant edema. Neurologically no focal deficit except for her dementia. Assessment and Plan *Assessment and plan (1) UTI (urinary tract infection): Status: Acute Qualifiers: Hematuria presence: without hematuria Urinary tract infection type: site unspecified Qualified Code(s): N39.0 - Urinary tract infection, site not specified Category: Medical Code(s): N39.0 - Urinary tract infection, site not specified (2) Severe sepsis with acute organ dysfunction: Status: Acute Category: Medical Code(s): A41.9 - Sepsis, unspecified organism; R65.20 - Severe sepsis without septic shock (3) CHAI (acute kidney injury): Status: Acute Category: Medical Code(s): N17.9 - Acute kidney failure, unspecified (4) E. coli sepsis: Status: Acute Category: Medical Code(s): A41.51 - Sepsis due to Escherichia coli [E. coli] (5) Dementia with behavioral disturbance: Status: Chronic Category: Medical Code(s): F03.91 - Unspecified dementia with behavioral disturbance Assessment and plan all Dx Plan of Treatment: 1. E. coli sepsis-remains on antibiotic coverage. Await final sensitivity report. 2. PICC line will be placed today. Transfer back to half-way tomorrow if this goes well. 3. Check labs this morning given her pallor.
[2022-04-11 16:00] VITALS: BP 156/77; PULSE 79; RESP 16; TEMP 36.6; O2SAT 100
--- NOTE | 2022-04-11 18:45 | PC.NURSE ---
P HAS SLEPT MOST OF SHIFT, ALERT X1. CATHETER REMOVED, PT AMBULATES WITH X1 ASSIST TO BR. PICC PLACED, TOLERATED WELL. DAUGHTER HAS CALLED AND BEEN UPDATED SINCE GETTING PICC. PT CURRENTLY SITTING IN CHAIR AT BEDSIDE. NO COMPLAINTS AT THIS TIME. PT CAN AMADEO=OME AGITATING AND COMBATIVE WHEN CHANGING. BED ALARM IN PLACE.
[2022-04-11 20:00] VITALS: BP 147/83; PULSE 83; RESP 18; TEMP 36.8; O2SAT 100
[2022-04-11 23:44] VITALS: BP 139/82; PULSE 88; RESP 20; TEMP 36.9; O2SAT 98
[2022-04-12 04:00] VITALS: BP 155/84; PULSE 87; RESP 19; TEMP 36.9; O2SAT 100
--- NOTE | 2022-04-12 04:20 | PC.NURSE ---
pt has rested throughout the night. alert and oriented to self. no complaints of pain this shift. incontinent of bladder and bowel. turned and repositioned Q2 hrs. call light is in reach, bed alarm is on and functioning.
[2022-04-12 05:00] VITALS: BMI 29.0
[2022-04-12 08:00] VITALS: BP 150/80; PULSE 95; RESP 16; TEMP 36.6; O2SAT 98
[2022-04-12 08:19] LABS: Basophils # 0.1 K/mm3 (0-0.2); Basophils % 1.2 % (0.1-2.0); Eosinophils # 0.3 K/mm3 (0.0-0.4); Eosinophils % 2.7 % (0.1-12.0); Hematocrit 40.2 % (37.0-47.0); Hemoglobin 12.7 g/dL (12.2-16.2); Lymphocytes # 1.6 K/mm3 (0.7-4.5); Lymphocytes % 14.6 % (10-50); Mean Corpuscular HGB Conc 31.5 g/dL (31.8-35.4); Mean Corpuscular Hemoglobin 30.9 pg (27.0-31.2); Mean Corpuscular Volume 98.1 fl (81-99); Mean Platelet Volume 8.7 fl (7.4-10.4); Monocytes # 0.8 K/mm3 (0.1-1.0); Monocytes % 7.4 % (1.7-9.3); Platelet Count 249 K/mm3 (142-424); Red Cell Distribution Width 13.7 % (11.5-17.5); White Blood Count 10.8 K/mm3 (4.8-10.8)
[2022-04-12 08:50] LABS: Blood Urea Nitrogen 11 mg/dl (7-17); Calcium 8.2 mg/dl (8.4-10.2); Carbon Dioxide 21 mmol/L (22.0-30.0); Chloride 114 mmol/L (98-107); Creatinine Clearance Estimated 64 mL/min (50-200); Estimated Glomerular Filt Rate 82 ml/min (>60); GFR (African American) 99 ML/MIN (>60); Glucose 89 mg/dl (74-100); Sodium 142 mmol/L (136-145)
[2022-04-12 08:55] LABS: Coronavirus 19, PCR Not Detected (NotDetected); Influenza A, PCR Not Detected (NotDetected); Influenza B, PCR Not Detected (NotDetected)
--- NOTE | 2022-04-12 08:59 | EXP.DC.SUM ---
General Admission date:: 04/09/22 Discharge date: 04/12/22 HPI HPI HPI: 76-year-old white female, long-term senior living resident who suffers from dementia and multiple other medical problems whose had a fever at the senior living over the 48 hours before admission. Placed on cefdinir for probable UTI but continued to do poorly and was brought to the emergency department. In the emergency department she met criteria for SIRS/septic shock. And was admitted to hospital for IV antibiotics. Please see H&P for details. Exam Data for Last 24 hours Vital signs and Labs for Last 24 Hours: Temp Pulse Resp BP Pulse Ox 98 F 95 H 16 150/80 H 98 04/12/22 08:00 04/12/22 08:00 04/12/22 08:00 04/12/22 08:00 04/12/22 08:00 Laboratory Results - last 24 hr 04/08/22 22:11: Urine Color Yellow, Urine Appearance Cloudy, Urine pH 6.0, Ur Specific [place] 1.020, Urine Protein 2+, Urine Glucose (UA) Negative, Urine Ketones Trace, Urine Blood 2+, Urine Nitrate Positive, Urine Bilirubin Negative, Urine Urobilinogen 0.2, Ur Leukocyte Esterase 2+ A, Urine RBC 10-20, Urine WBC Tntc 04/12/22 07:43: WBC 10.8, RBC 4.10 L, Hgb 12.7, Hct 40.2, MCV 98.1, MCH 30.9, MCHC 31.5 L, RDW 13.7, Plt Count 249, MPV 8.7, Neut % (Auto) 74.0, Lymph % (Auto) 14.6, [place] % (Auto) 7.4, Eos % (Auto) 2.7, Baso % (Auto) 1.2, Neut # (Auto) 8.0 H, Lymph # (Auto) 1.6, [place] # (Auto) 0.8, Eos # (Auto) 0.3, Baso # (Auto) 0.1 04/12/22 07:43: Sodium 142, Potassium 4.0 D, Chloride 114 H, Carbon Dioxide 21 L, Anion Gap 11.0, BUN 11 D, Creatinine 0.70 D, Estimated Creat Clear 64, Estimated GFR 82, Est GFR ( Amer) 99 D, Glucose 89, Calcium 8.2 L I & O for Last 24 hours: Intake & Output 04/09/22 04/10/22 04/11/22 04/12/22 11:59 11:59 11:59 11:59 Intake Total 0 / 0 2694 / 2694 480 / 480 360 / 360 Output Total 100 / 100 1150 / 1150 2375 / 2375 300 / 300 Balance -100 / -100 1544 / 1544 -1895 / -1895 60 / 60 Weight 178 lb 9.191 oz 182 lb 7 oz 181 lb 1 oz Microbiology Reports for the Last 24 Hours: Microbiology 04/08/22 22:11 Urine,Catheterized Urine Culture - Preliminary Gram Negative Rods Gram Negative Rods#2 Constitutional Constitutional: no acute distress and chronically ill appearing *Routine HEENT Exam Head: Present normocephalic Eye: Present EOMI and PERRL ENT: Present mucous membranes moist *Routine Neck Exam Neck: Present supple; Absent lymphadenopathy *Routine Respiratory Exam Respiratory: Present CTA bilaterally *Routine Cardiovascular Exam Cardiovascular: Present RRR and murmur *Routine Abdominal Exam Abdominal: Present soft and normoactive bowel sounds; Absent tenderness *Routine Rectal Exam Rectal:: deferred *Routine Genitalia Exam Genitalia:: deferred *Routine Extremities Exam Extremities: Absent cyanosis, clubbing or edema Comments: Newly inserted PICC line in good position *Routine Skin Exam Skin: Present warm; Absent rash *Routine Neurological Exam Neurological: Present alert and altered mental status Comments: Dementia at baseline. Follows some commands. Occasionally agitated but overall pleasant and smiles. Hospital Course Hospital Course Hospital Course: Patient was admitted to hospital. Placed on ceftriaxone. Blood cultures grew E. coli, along with urine culture. This was treated with ceftriaxone as noted, and she improved from a febrile illness perspective. She was able to eat well. Given her positive blood cultures and significant illness it was deemed she would need IV antibiotics for 2 weeks and a PICC line was placed. She is afebrile. White counts have improved and she is eating well. She will be transferred back to [facility] today. She will need ceftriaxone 1 g IV daily for the next 10 days to finish her course. She has been mildly hypokalemic here, and she will need a BMP and a CBC in 2 days. Otherwise diet, activity and previous meds will contin
--- NOTE | 2022-04-13 13:22 | CARE MANAGER ---
Contacted [facility] and spoke with Carla. She states that the patient is doing well and is acting more like herself. She is receiving her IV antibiotics. Denies any questions or concerns. YAQUELIN Hightower
== END 2022-04-12 10:25 | DRG 871 ==
LOC: ER 23:57 → 2ND 04-09 00:20
PROVIDERS: Admitting Provider Internal Medicine Adolescent Medicine; Emergency Provider Emergency Medicine; PCP Internal Medicine Adolescent Medicine; Visit Provider Internal Medicine Adolescent Medicine
DX: A41.51 Sepsis due to Escherichia coli [E. coli] (principal); R65.21 Severe sepsis with septic shock; N39.0 Urinary tract infection, site not specified; N17.9 Acute kidney failure, unspecified; F03.91 Unspecified dementia, unspecified severity, with behavioral disturbance; Z87.891 Personal history of nicotine dependence; F03.90 Unspecified dementia, unspecified severity, without behavioral disturbance, psychotic disturbance, mood disturbance, and anxiety; E87.6 Hypokalemia
CPT/HCPCS: 36569; 36410; 36415; 51702; 71045; 80048; 80053; 81001; 83605; 84145; 84484; 85007; 85025; 85651; 86140; 87040; 87077; 87086; 87088; 87186; 93005; 99291; C1751; C9803; J0696; U0003; U0005

== ENCOUNTER → 2022-04-15 00:41 | Outpatient (REF) | payer MEDICARE, MEDICAID, SELFPAY ==
[2022-04-15 01:17] LABS: Basophils # 0.1 K/mm3 (0-0.2); Basophils % 0.8 % (0.1-2.0); Eosinophils # 0.3 K/mm3 (0.0-0.4); Eosinophils % 2.7 % (0.1-12.0); Hematocrit 39.2 % (37.0-47.0); Hemoglobin 12.1 g/dL (12.2-16.2); Lymphocytes # 2.5 K/mm3 (0.7-4.5); Lymphocytes % 20.8 % (10-50); Mean Corpuscular Hemoglobin 30.3 pg (27.0-31.2); Mean Platelet Volume 8.8 fl (7.4-10.4); Monocytes # 0.9 K/mm3 (0.1-1.0); Monocytes % 7.6 % (1.7-9.3); Neutrophils # 8.3 K/mm3 (1.8-7.8); Neutrophils % 68.1 % (37.0-80.0); Platelet Count 457 K/mm3 (142-424); Red Cell Distribution Width 13.8 % (11.5-17.5); White Blood Count 12.1 K/mm3 (4.8-10.8)
[2022-04-15 01:23] LABS: Anion Gap 8.6 mEq/L (5-15); Blood Urea Nitrogen 9 mg/dl (7-17); Calcium 8.3 mg/dl (8.4-10.2); Carbon Dioxide 26 mmol/L (22.0-30.0); Chloride 111 mmol/L (98-107); Estimated Glomerular Filt Rate 82 ml/min (>60); GFR (African American) 99 ML/MIN (>60); Glucose 67 mg/dl (74-100); Potassium 4.6 mmoL/L (3.5-5.1); Sodium 141 mmol/L (136-145)
== END ==
LOC: LAB.DROPOF 00:41
PROVIDERS: Visit Provider Internal Medicine Adolescent Medicine
DX: A41.9 Sepsis, unspecified organism (principal); A41.51 Sepsis due to Escherichia coli [E. coli]
CPT/HCPCS: 80048; 85025

== ENCOUNTER 2022-06-25 18:49 | Emergency (ER) | payer MEDICARE, MEDICAID, SELFPAY ==
[2022-06-25 18:49] VITALS: BP 166/100; PULSE 70; RESP 16; TEMP 37.1; O2SAT 100; BMI 38.7
--- NOTE | 2022-06-25 19:05 | XR_ITS ---
PROCEDURE INFORMATION: Exam: XR Left Knee Exam date and time: 06/25/2022 7:25 PM Age: 76 years old Clinical indication: Injury or trauma; Fall; Blunt trauma; Knee; Left; Additional info: Fall, knee pain TECHNIQUE: Imaging protocol: Radiologic exam of the Left knee. Views: 3 views. COMPARISON: No relevant prior studies available. FINDINGS: Bones/joints: There is a displaced distal femur shaft fracture with posterior displacement of the distal fracture fragment. No additional fracture. Soft tissues: Normal. IMPRESSION: There is a displaced distal femur shaft fracture with posterior displacement of the distal fracture fragment. No additional fracture.
--- NOTE | 2022-06-25 19:05 | CT_ITS ---
PROCEDURE INFORMATION: Exam: CT Maxillofacial Without Contrast Exam date and time: 06/25/2022 8:13 PM Age: 76 years old Clinical indication: Injury or trauma; Fall; Additional info: Fall, facial trauma TECHNIQUE: Imaging protocol: Computed tomography of the of the face without contrast. Radiation optimization: All CT scans at this facility use at least one of these dose optimization techniques: automated exposure control; mA and/or kV adjustment per patient size (includes targeted exams where dose is matched to clinical indication); or iterative reconstruction. COMPARISON: CT HEAD/BRAIN WO CON 06/25/2022 8:11 PM FINDINGS: Orbital cavities: Orbits are normal. Globes are unremarkable. Bones/joints: Comminuted bilateral nasal bone fractures. Paranasal sinuses: Small left maxillary air-fluid level. Soft tissues: Unremarkable. IMPRESSION: Comminuted bilateral nasal bone fractures.
--- NOTE | 2022-06-25 19:05 | XR_ITS ---
PROCEDURE INFORMATION: Exam: XR Bilateral Hips Exam date and time: 06/25/2022 7:20 PM Age: 76 years old Clinical indication: Injury or trauma; Fall; Blunt trauma (contusions or hematomas); Bilateral; Pelvic region TECHNIQUE: Imaging protocol: Radiologic exam of the bilateral hips. Views: 2 views of hips with pelvis when performed. COMPARISON: No relevant prior studies available. FINDINGS: Bones/joints: Degenerative changes in bilateral hip joints with joint space narrowing and osteophyte formation. No acute fracture. Soft tissues: Unremarkable. IMPRESSION: No acute findings.
--- NOTE | 2022-06-25 19:06 | CT_ITS ---
PROCEDURE INFORMATION: Exam: CT Head Without Contrast Exam date and time: 06/25/2022 8:11 PM Age: 76 years old Clinical indication: Injury or trauma; Fall; Additional info: Fall, chi TECHNIQUE: Imaging protocol: Computed tomography of the head without contrast. Radiation optimization: All CT scans at this facility use at least one of these dose optimization techniques: automated exposure control; mA and/or kV adjustment per patient size (includes targeted exams where dose is matched to clinical indication); or iterative reconstruction. COMPARISON: No relevant prior studies available. FINDINGS: Brain: Periventricular and subcortical small vessel ischemic changes. Mild atrophy associated. No acute hemorrhage, mass effect, midline shift, or extra-axial fluid collection. Cerebral ventricles: No ventriculomegaly. Paranasal sinuses: Visualized sinuses are unremarkable. No fluid levels. Mastoid air cells: Visualized mastoid air cells are well aerated. Bones/joints: Comminuted fracture of the nasal bones. Soft tissues: Unremarkable. IMPRESSION: 1. Comminuted fracture of the nasal bones. 2. No CT evidence of acute large vessel infarct. 3. No acute intracranial traumatic changes.
--- NOTE | 2022-06-25 19:06 | CT_ITS ---
PROCEDURE INFORMATION: Exam: CT Cervical Spine Without Contrast Exam date and time: 06/25/2022 8:16 PM Age: 76 years old Clinical indication: Injury or trauma; Fall; Additional info: Fall, 76 yo/ams TECHNIQUE: Imaging protocol: Computed tomography of the cervical spine without contrast. Radiation optimization: All CT scans at this facility use at least one of these dose optimization techniques: automated exposure control; mA and/or kV adjustment per patient size (includes targeted exams where dose is matched to clinical indication); or iterative reconstruction. COMPARISON: CT FACIAL BONES WO CON 06/25/2022 8:13 PM FINDINGS: Bones/joints: No acute fracture. Normal alignment. Degenerative changes. C2-C3: No significant disc protrusion. No severe spinal canal stenosis. No significant neural foraminal narrowing. C3-C4: No significant disc protrusion. No severe spinal canal stenosis. No significant neural foraminal narrowing. C4-C5: No significant disc protrusion. No severe spinal canal stenosis. No significant neural foraminal narrowing. C5-C6: No significant disc protrusion. No severe spinal canal stenosis. No significant neural foraminal narrowing. C6-C7: No significant disc protrusion. No severe spinal canal stenosis. No significant neural foraminal narrowing. C7-T1: No significant disc protrusion. No severe spinal canal stenosis. No significant neural foraminal narrowing. Lungs: Lung apices are normal. Soft tissues: Unremarkable. IMPRESSION: No acute traumatic findings.
--- NOTE | 2022-06-25 19:19 | PC.NURSE ---
Pt gone to RAD
--- NOTE | 2022-06-25 19:45 | PC.NURSE ---
PT back from RAD
[2022-06-25 20:00] VITALS: BP 111/68; PULSE 59; O2SAT 98
--- NOTE | 2022-06-25 20:12 | ECG_ITS ---
APPROVED REPORT Exam: Resting ECG HR:56 bpm ECG Measurements Heart Rate 56 AXES KS 179 P 63 QRSd 97 QRS 30 QT 444 T 56 QTc 435 Conclusion SINUS BRADYCARDIA WITH MARKED SINUS ARRHYTHMIA BORDERLINE ECG UNCONFIRMED REPORT Electronically signed by : Jeremy Yoder MD 06/26/2022 18:09:01
[2022-06-25 20:30] VITALS: BP 134/72; PULSE 53; O2SAT 98
[2022-06-25 21:00] VITALS: BP 137/73; PULSE 63; O2SAT 97
--- NOTE | 2022-06-25 21:01 | HMH.EDFALL ---
Discharge Plan Disposition Patient Disposition: Xfer Short-Term Hosp Chief Complaint: Fall Prescriptions Prescriptions: No Action donepezil 10 MG tablet 10 mg PO DAILY metoprolol succinate 100 MG tablet extended release 24 hr 100 mg PO DAILY acetaminophen 500 MG tablet 500 mg PO DAILY potassium chloride 20 MEQ tablet 20 meq PO DAILY divalproex 125 MG tablet,delayed release (DR/EC) 125 mg PO BID aspirin 81 MG tablet,chewable 81 mg PO DAILY memantine 1 EACH tablets,dose pack 1 tab PO HS quetiapine 50 MG tablet 50 mg PO BID mirabegron 50 MG tablet extended release 24 hr 50 mg PO DAILY colchicine 0.6 MG capsule 0.6 mg PO DAILY pantoprazole 40 MG tablet,delayed release (DR/EC) 40 mg PO HS clindamycin phosphate 5 GM cream,extended release 5 gm VG DAILY ceftriaxone 1 gram recon soln 1 g IV DAILY Qty: 10 0RF hydrocodone-acetaminophen 1 TAB tablet 1 tab PO Q8HP PRN (Reason: Pain) Qty: 90 0RF Referrals Follow up/Referrals: Jeremy Yoder MD [Primary Care Provider] - See instructions Clinical Impressions Clinical Impression: Femur fracture, left, Closed fracture nasal bone, Fall Stand Alone Forms Stand Alone Forms: Transfer Record - ED Discharge ED Provider: Vaughn Larson HPI General Chief Complaint: Fall Stated Complaint: FALL Time Seen by Provider: 06/25/22 20:45 Mode of Arrival: EMS Source of Information: Relative, EMS and Medical Record Limitations: Altered Mental Status Description of Symptoms (Recalled from ER Triage Doc. by RN): per senior care pt found laying on the floor. pt has chronic pain and states she in pain in lt knee and has abrasion to nose History of Present Illness HPI Narrative: fell at [facility] today - with lt lower leg pain - no loc complaint: fall Onset (ago): hour(s) Fall from: out of bed Fall witnessed: no Place fall occurred: senior care/SNF Loss of consciousness: none Context: tripped/slipped Location of injury - extremities: Right: knee Severity: moderate Associated symptoms (after fall): headache Related Data Home Medications Medication Instructions Recorded Confirmed acetaminophen 500 mg tablet 500 mg PO DAILY Pain 03/22/22 04/09/22 aspirin 81 mg chewable tablet 81 mg PO DAILY Heart disease 03/22/22 04/08/22 colchicine 0.6 mg capsule 0.6 mg PO DAILY gout 03/22/22 04/08/22 divalproex 125 mg tablet,delayed 125 mg PO BID dementia 03/22/22 04/09/22 release donepezil 10 mg tablet 10 mg PO DAILY dementia 03/22/22 04/08/22 memantine 5 mg-10 mg tablets in a 1 tab PO HS dementia 03/22/22 04/09/22 dose pack metoprolol succinate 100 mg 100 mg PO DAILY High blood pressure 03/22/22 04/09/22 tablet,extended release 24 hr mirabegron 50 mg tablet,extended 50 mg PO DAILY bladder spasms 03/22/22 04/09/22 release 24 hr potassium chloride 20 mEq 20 meq PO DAILY Supplement 03/22/22 04/09/22 tablet,extended release(part/cryst) quetiapine 50 mg tablet 50 mg PO BID dementia 03/22/22 04/09/22 clindamycin phosphate 2 % vaginal 5 gm vaginal DAILY Infection 04/09/22 04/09/22 cream,extended release pantoprazole 40 mg tablet,delayed 40 mg PO HS acid reflux 04/09/22 04/09/22 release Previous Rx's Medication Instructions Recorded ceftriaxone 1 gram intravenous 1 g IV DAILY #10 ea 04/12/22 solution hydrocodone 5 mg-acetaminophen 325 1 tab PO Q8HP PRN Pain #90 tabs 04/12/22 mg tablet Allergies Allergy/AdvReac Type Severity Reaction Status Date / Time No Known Allergies Allergy Verified 02/23/22 10:30 PFSH PFSH Social History Smoking Status: Never smoker alcohol intake: never substance use type: denies use current occupational status: retired Travel in the last 8 weeks: None housing: house caffeine: Yes ROS Obtained: Yes All systems reviewed & no additional complaints except as documented Physical Exam General General appearance: julianne
--- NOTE | 2022-06-25 21:09 | XR_ITS ---
PROCEDURE INFORMATION: Exam: XR Chest Exam date and time: 06/25/2022 9:43 PM Age: 76 years old Clinical indication: Injury or trauma; Fall; Blunt trauma (contusions or hematomas) TECHNIQUE: Imaging protocol: Radiologic exam of the chest. Views: 1 view. COMPARISON: CR XR CHEST PORTABLE PICC PLAC 04/11/2022 1:15 PM FINDINGS: Lungs: Haziness in the left lung could reflect pneumonia versus atelectasis versus asymmetric edema. Linear areas of atelectasis in the right lower lobe. Pleural spaces: Unremarkable. No pleural effusion. No pneumothorax. Heart/Mediastinum: Unremarkable. No cardiomegaly. Bones/joints: Unremarkable. IMPRESSION: Haziness in the left lung could reflect pneumonia versus atelectasis versus asymmetric edema. Linear areas of atelectasis in the right lower lobe.
--- NOTE | 2022-06-25 21:22 | CT_ITS ---
PROCEDURE INFORMATION: Exam: CT Left Lower Extremity Without Contrast, Knee Exam date and time: 06/25/2022 10:31 PM Age: 76 years old Clinical indication: Injury or trauma; Fall; Additional info: Fracture TECHNIQUE: Imaging protocol: CT of the Left lower extremity without contrast was performed. Exam focused on the knee. Radiation optimization: All CT scans at this facility use at least one of these dose optimization techniques: automated exposure control; mA and/or kV adjustment per patient size (includes targeted exams where dose is matched to clinical indication); or iterative reconstruction. COMPARISON: CR XR KNEE LT 3V 06/25/2022 7:25 PM FINDINGS: Bones/joints: Comminuted displaced distal femur fracture. Scattered butterfly fracture fragments. Tricompartmental joint space narrowing and osteophyte formation. Soft tissues: Normal. IMPRESSION: Comminuted displaced distal femur fracture.
--- NOTE | 2022-06-25 21:24 | PC.NURSE ---
nathaniel gave verbal order of 2mg morphine
[2022-06-25 21:26] LABS: Coronavirus 19, PCR Not Detected (NotDetected); Influenza A, PCR Not Detected (NotDetected); Influenza B, PCR Not Detected (NotDetected)
[2022-06-25 21:28] LABS: Microscopic, Urine URINE MICROSCOPIC (MICROSCOPIC)
--- NOTE | 2022-06-25 21:30 | PC.NURSE ---
Pt gone to RAD for CT and XRAY
[2022-06-25 21:31] LABS: Appearance,Urine CLEAR (Clear); Basophils # 0.1 K/mm3 (0-0.2); Basophils % 0.3 % (0.1-2.0); Bilirubin,Urine Negative (Negative); Blood, Urine Negative (Negative); Color,Urine YELLOW (Yellow); Eosinophils # 0.1 K/mm3 (0.0-0.4); Eosinophils % 0.5 % (0.1-12.0); Glucose,Urine (UA) Negative (Negative); Hematocrit 44.9 % (37.0-47.0); Hemoglobin 14.3 g/dL (12.2-16.2); Ketones,Urine Negative (Negative); Leukocyte Esterase,Urine TRACE (Negative); Lymphocytes # 2.4 K/mm3 (0.7-4.5); Lymphocytes % 11.9 % (10-50); Mean Corpuscular Hemoglobin 31.2 pg (27.0-31.2); Mean Corpuscular Volume 97.5 fl (81-99); Mean Platelet Volume 7.8 fl (7.4-10.4); Monocytes # 0.9 K/mm3 (0.1-1.0); Monocytes % 4.6 % (1.7-9.3); Neutrophils # 16.4 K/mm3 (1.8-7.8); Neutrophils % 82.7 % (37.0-80.0); Nitrate,Urine Negative (Negative); PH,Urine 6.5 (5.0-8.5); Platelet Count 449 K/mm3 (142-424); Protein,Urine TRACE (Negative); Red Cell Distribution Width 13.8 % (11.5-17.5); Specific Gravity, Urine 1.015 (1.005-1.030); Urobilinogen,Urine 0.2 EU/dl (0.2); White Blood Count 19.8 K/mm3 (4.8-10.8)
[2022-06-25 21:36] LABS: Chloride 105 mmol/L (98-107); MANUAL DIFFERENTIAL MANUAL DIFFERENTIAL (MANUAL DIFF); Potassium 4.3 mmoL/L (3.5-5.1); Sodium 146 mmol/L (136-145)
[2022-06-25 21:38] LABS: Alanine Aminotransferase 20 U/L (12-78); Aspartate Amino Transferase 32 U/L (14-36); Blood Urea Nitrogen 18 mg/dl (7-17); Creatinine Clearance Estimated 85 mL/min (50-200); Estimated Glomerular Filt Rate 54 ml/min (>60); GFR (African American) 66 ML/MIN (>60)
[2022-06-25 21:39] LABS: Albumin Level 3.7 g/dl (3.5-5.0); Albumin/Globulin Ratio 1.2 (1.1-1.8); Alkaline Phosphatase 111 U/L (38-126); Anion Gap 16.3 mEq/L (5-15); Bilirubin,Total 0.2 mg/dl (0.2-1.3); Calcium 9.5 mg/dl (8.4-10.2); Carbon Dioxide 29 mmol/L (22.0-30.0); Globulin 3.2 g/dL (1.3-3.2); Glucose 123 mg/dl (74-100); Total Protein,Serum 6.9 g/dl (6.3-8.2)
--- NOTE | 2022-06-25 21:42 | PC.NURSE ---
Pt back from RAD
[2022-06-25 21:44] LABS: INR 1.02 (0.9-1.1)
--- NOTE | 2022-06-25 21:51 | PC.NURSE ---
Knee immobilizer placed on left leg
--- NOTE | 2022-06-25 21:51 | PC.NURSE ---
Dr. Jaime mota
[2022-06-25 22:04] LABS: Lymphocytes % 19 % (10-50); Monocytes % 3 % (2-9); Neutrophils % 78 % (42-76); Total Cells Counted 100
[2022-06-25 22:05] LABS: Tear Drop Cells 1+
--- NOTE | 2022-06-25 22:05 | PC.NURSE ---
Dr. Larson spoke with Dr. Sandoval and he advised to call [facility]
[2022-06-25 22:06] LABS: Ovalocytes 1+; Platelet Estimate Normal
--- NOTE | 2022-06-25 22:09 | PC.NURSE ---
Pt accepted at [facility]
[2022-06-25 22:27] LABS: Yeast,Urine 1+ /lpf
[2022-06-25 22:28] VITALS: BP 134/75; PULSE 63; RESP 16; TEMP 36.9; O2SAT 99
== END 2022-06-25 22:59 | disposition short-term general hospital (02) ==
PROVIDERS: Emergency Medicine; Emergency Provider Emergency Medicine; PCP Internal Medicine Adolescent Medicine
DX: S72.92XA Unspecified fracture of left femur, initial encounter for closed fracture (principal); S02.2XXA Fracture of nasal bones, initial encounter for closed fracture; S72.302A Unspecified fracture of shaft of left femur, initial encounter for closed fracture; Z23 Encounter for immunization; W19.XXXA Unspecified fall, initial encounter; Z79.82 Long term (current) use of aspirin; Z79.899 Other long term (current) drug therapy; F03.90 Unspecified dementia, unspecified severity, without behavioral disturbance, psychotic disturbance, mood disturbance, and anxiety; K21.9 Gastro-esophageal reflux disease without esophagitis
CPT/HCPCS: 51702; 70450; 70486; 71045; 72125; 73521; 73562; 73700; 80053; 81001; 85007; 85025; 85610; 90471; 93005; 96374; 99285; C9803; U0003; U0005

== ENCOUNTER 2022-07-11 21:30 | Emergency (ER) | payer MEDICARE, MEDICAID, SELFPAY ==
[2022-07-11 21:30] VITALS: BP 147/86; PULSE 95; RESP 18; TEMP 36.6; O2SAT 95; BMI 31.6
--- NOTE | 2022-07-11 21:37 | XR_ITS ---
PROCEDURE INFORMATION: Exam: XR Chest Exam date and time: 07/11/2022 9:41 PM Age: 77 years old Clinical indication: Injury or trauma; Fall; Blunt trauma (contusions or hematomas) TECHNIQUE: Imaging protocol: Radiologic exam of the chest. Views: 1 view. COMPARISON: CR XR CHEST PORTABLE 06/25/2022 9:43 PM FINDINGS: Lungs: No evidence of pneumonia or interstitial edema. Lungs are hypoaerated. Pleural spaces: Unremarkable. No pleural effusion. No pneumothorax. Heart/Mediastinum: Unremarkable. No cardiomegaly. Bones/joints: Unremarkable. IMPRESSION: 1. No evidence of pneumonia or interstitial edema. 2. No visible fracture.
--- NOTE | 2022-07-11 21:38 | XR_ITS ---
PROCEDURE INFORMATION: Exam: XR Left Foot Exam date and time: 07/11/2022 10:05 PM Age: 77 years old Clinical indication: Injury or trauma; Fall; Blunt trauma; Foot; Left TECHNIQUE: Imaging protocol: Radiologic exam of the Left foot. Views: 3 or more views. COMPARISON: CR XR TIBIA FIBULA LT 2V 07/11/2022 9:40 PM FINDINGS: Bones/joints: Diffuse osteopenia. No visible fracture or dislocation. Soft tissues: No soft tissue abnormality IMPRESSION: No visible fracture or dislocation.
--- NOTE | 2022-07-11 21:38 | XR_ITS ---
PROCEDURE INFORMATION: Exam: XR Left Tibia and Fibula Exam date and time: 07/11/2022 9:40 PM Age: 77 years old Clinical indication: Injury or trauma; Fall; Blunt trauma; Lower leg; Left; Prior surgery TECHNIQUE: Imaging protocol: Radiologic exam of the Left tibia and fibula. Views: 2 views. COMPARISON: CR XR KNEE LT 3V 07/11/2022 9:39 PM FINDINGS: Bones/joints: Refer to dedicated knee radiograph report dictated under a separate accession number for details regarding distal femoral fracture. No visible new fracture or dislocation. Soft tissues: Normal. IMPRESSION: No visible fracture or dislocation.
--- NOTE | 2022-07-11 21:38 | XR_ITS ---
PROCEDURE INFORMATION: Exam: XR Left Femur Exam date and time: 07/11/2022 9:38 PM Age: 77 years old Clinical indication: Injury or trauma; Fall; Blunt trauma; Hip; Left; Prior surgery TECHNIQUE: Imaging protocol: Radiologic exam of the Left femur. Views: 2 views. COMPARISON: CR XR PELVIS 1-2V 07/11/2022 9:36 PM FINDINGS: Bones/joints: Status post ORIF of distal femoral fracture. There is an intramedullary nail with interlocking screws. Alignment has improved. No significant callus formation noted. Soft tissues: Unremarkable. IMPRESSION: 1. No new acute fracture. 2. Status post ORIF of distal femoral fracture without significant callus formation
--- NOTE | 2022-07-11 21:38 | XR_ITS ---
PROCEDURE INFORMATION: Exam: XR Pelvis Exam date and time: 07/11/2022 9:36 PM Age: 77 years old Clinical indication: Injury or trauma; Fall; Blunt trauma (contusions or hematomas); Left; Pelvic region; Prior surgery TECHNIQUE: Imaging protocol: Radiologic exam of the pelvis. Views: 1 or 2 view. COMPARISON: CR XR HIP BI W PEL1V 06/25/2022 7:20 PM FINDINGS: Bones/joints: Intramedullary noted in the left femur. [id number] left hip osteoarthritis. Mild right hip osteoarthritis. No visible fracture or dislocation. Soft tissues: Unremarkable. IMPRESSION: No visible fracture or dislocation.
--- NOTE | 2022-07-11 21:38 | XR_ITS ---
PROCEDURE INFORMATION: Exam: XR Left Knee Exam date and time: 07/11/2022 9:39 PM Age: 77 years old Clinical indication: Injury or trauma; Fall; Blunt trauma; Knee; Left; Prior surgery TECHNIQUE: Imaging protocol: Radiologic exam of the Left knee. Views: 3 views. COMPARISON: CT KNEE LT WO CON 06/25/2022 10:31 PM FINDINGS: Bones/joints: Status post ORIF of distal femoral fracture. There is an intramedullary nail with interlocking screws. No hardware-related complication noted. Fracture alignment has improved. No significant callus formation noted. No joint effusion. Soft tissues: Unremarkable. IMPRESSION: 1. No new acute fracture. 2. Status post ORIF of distal femoral fracture without significant callus formation
--- NOTE | 2022-07-11 22:04 | HMH.EDFALL ---
Discharge Plan Disposition Patient Disposition: Home, Self-Care Chief Complaint: Fall Prescriptions Prescriptions: No Action donepezil 10 MG tablet 10 mg PO DAILY metoprolol succinate 100 MG tablet extended release 24 hr 100 mg PO DAILY acetaminophen 500 MG tablet 500 mg PO DAILY potassium chloride 20 MEQ tablet 20 meq PO DAILY divalproex 125 MG tablet,delayed release (DR/EC) 125 mg PO BID aspirin 81 MG tablet,chewable 81 mg PO DAILY memantine 1 EACH tablets,dose pack 1 tab PO HS quetiapine 50 MG tablet 50 mg PO BID mirabegron 50 MG tablet extended release 24 hr 50 mg PO DAILY colchicine 0.6 MG capsule 0.6 mg PO DAILY pantoprazole 40 MG tablet,delayed release (DR/EC) 40 mg PO HS clindamycin phosphate 5 GM cream,extended release 5 gm VG DAILY ceftriaxone 1 gram recon soln 1 g IV DAILY Qty: 10 0RF hydrocodone-acetaminophen 1 TAB tablet 1 tab PO Q8HP PRN (Reason: Pain) Qty: 90 0RF Referrals Follow up/Referrals: Jeremy Yoder MD [Primary Care Provider] - See instructions Clinical Impressions Clinical Impression: Fall, Injury of lower extremity Instructions Patient Instructions: How to Prevent Falls Discharge ED Provider: Vaughn Larson Fall HPI General Chief Complaint: Fall Stated Complaint: fall, LLE pain Time Seen by Provider: 07/11/22 22:04 Mode of Arrival: EMS Source of Information: Patient, EMS and Medical Record Limitations: Altered Mental Status Description of Symptoms (Recalled from ER Triage Doc. by RN): Per ems, patient had surgery on 07/07/22 to repair a left sided shattered femur with implantation of a cadaver bone. Patient (who also has dementia) attempted to ambulate independly tonight to the restroom and fell. Fall was unwitnessed. Complaints of generalized pain. History of Present Illness HPI Narrative: fall at [facility] with recent orif of distal lt femur fx - pt unable to give specific hx MD complaint: fall Onset (ago): hour(s) Fall from: out of bed Fall witnessed: no Place fall occurred: [facility] Loss of consciousness: none Prolonged down time: no Location of injury - extremities: Left: thigh, knee and lower leg Severity: moderate Related Data Home Medications Medication Instructions Recorded Confirmed acetaminophen 500 mg tablet 500 mg PO DAILY Pain 03/22/22 04/09/22 aspirin 81 mg chewable tablet 81 mg PO DAILY Heart disease 03/22/22 04/08/22 colchicine 0.6 mg capsule 0.6 mg PO DAILY gout 03/22/22 04/08/22 divalproex 125 mg tablet,delayed 125 mg PO BID dementia 03/22/22 04/09/22 release donepezil 10 mg tablet 10 mg PO DAILY dementia 03/22/22 04/08/22 memantine 5 mg-10 mg tablets in a 1 tab PO HS dementia 03/22/22 04/09/22 dose pack metoprolol succinate 100 mg 100 mg PO DAILY High blood pressure 03/22/22 04/09/22 tablet,extended release 24 hr mirabegron 50 mg tablet,extended 50 mg PO DAILY bladder spasms 03/22/22 04/09/22 release 24 hr potassium chloride 20 mEq 20 meq PO DAILY Supplement 03/22/22 04/09/22 tablet,extended release(part/cryst) quetiapine 50 mg tablet 50 mg PO BID dementia 03/22/22 04/09/22 clindamycin phosphate 2 % vaginal 5 gm vaginal DAILY Infection 04/09/22 04/09/22 cream,extended release pantoprazole 40 mg tablet,delayed 40 mg PO HS acid reflux 04/09/22 04/09/22 release Previous Rx's Medication Instructions Recorded ceftriaxone 1 gram intravenous 1 g IV DAILY #10 ea 04/12/22 solution hydrocodone 5 mg-acetaminophen 325 1 tab PO Q8HP PRN Pain #90 tabs 04/12/22 mg tablet Allergies Allergy/AdvReac Type Severity Reaction Status Date / Time No Known Allergies Allergy Verified 02/23/22 10:30 PFSH PFSH Social History Smoking Status: Former smoker alcohol intake: never substance use type: denies use current occupational status: retired Travel in the last 8 weeks: None housing: house caffeine: Yes ROS Ob
[2022-07-11 23:08] VITALS: BP 135/77; PULSE 86; RESP 20; TEMP 36.7; O2SAT 98
== END 2022-07-11 23:22 | disposition home or self-care (01) ==
PROVIDERS: Emergency Provider Emergency Medicine; PCP Internal Medicine Adolescent Medicine
DX: S89.90XA Unspecified injury of unspecified lower leg, initial encounter (principal); S72.92XD Unspecified fracture of left femur, subsequent encounter for closed fracture with routine healing; Z98.890 Other specified postprocedural states; F03.90 Unspecified dementia, unspecified severity, without behavioral disturbance, psychotic disturbance, mood disturbance, and anxiety; W18.30XA Fall on same level, unspecified, initial encounter; Y93.01 Activity, walking, marching and hiking; Y92.129 Unspecified place in nursing home as the place of occurrence of the external cause
CPT/HCPCS: 71045; 72170; 73552; 73562; 73590; 73630; 99285

== ENCOUNTER → 2022-07-18 21:42 | Outpatient (CLI) | payer MEDICARE, MEDICAID, SELFPAY ==
[2022-07-18 21:57] LABS: Microscopic, Urine URINE MICROSCOPIC (MICROSCOPIC)
[2022-07-18 22:41] LABS: Appearance,Urine SL CLOUDY (Clear); Bilirubin,Urine Negative (Negative); Blood, Urine Negative (Negative); Color,Urine YELLOW (Yellow); Glucose,Urine (UA) Negative (Negative); Ketones,Urine Negative (Negative); Leukocyte Esterase,Urine Negative (Negative); Nitrate,Urine Negative (Negative); PH,Urine 6.5 (5.0-8.5); Protein,Urine Negative (Negative); Urobilinogen,Urine 0.2 EU/dl (0.2)
[2022-07-18 22:54] LABS: Bacteria,Urine 4+ /lpf
== END ==
PROVIDERS: PCP Nurse Practitioner Family; Visit Provider Nurse Practitioner Family
DX: R10.30 Lower abdominal pain, unspecified (principal); N39.0 Urinary tract infection, site not specified; B95.2 Enterococcus as the cause of diseases classified elsewhere
CPT/HCPCS: 81001; 87086; 87088; 87186

== ENCOUNTER 2022-11-10 23:34 | Emergency (ER) | payer MEDICARE, MEDICAID, SELFPAY ==
[2022-11-10 23:34] VITALS: BP 136/85; PULSE 84; RESP 20; TEMP 36.9; O2SAT 95; BMI 30.7
--- NOTE | 2022-11-10 23:44 | CT_ITS ---
PROCEDURE INFORMATION: Exam: CT Maxillofacial Without Contrast Exam date and time: 11/11/2022 12:13 AM Age: 77 years old Clinical indication: Pain; Additional info: Trauma TECHNIQUE: Imaging protocol: Computed tomography of the face without contrast. Radiation optimization: All CT scans at this facility use at least one of these dose optimization techniques: automated exposure control; mA and/or kV adjustment per patient size (includes targeted exams where dose is matched to clinical indication); or iterative reconstruction. REPORTING DATA: Count of CT and Cardiac NM exams in prior 12 months: This patient has received 6 known CTs and 0 known cardiac nuclear medicine studies in the 12 months prior to the current study. COMPARISON: CT HEAD/BRAIN WO CON 11/11/2022 12:11 AM FINDINGS: Orbital cavities: No acute intraorbital abnormalities. Bones/joints: Hyperostosis frontalis interna incidentally noted. No definite acute facial fractures are identified. There are bilateral nasal bone fractures present which demonstrate similar configuration to 06/25/2022 scan and may represent residual changes of remote prior fracture although correlate clinically to exclude acute nasal bone fracture. TMJs are well aligned. The infratemporal fossae and forest fire fighter spaces are unremarkable. Paranasal sinuses: Mucosal thickening in the right maxillary sinus with partially aerated secretions. Mucosal thickening in the right sphenoid sinus with suspected fluid level. The findings are suspicious for acute on chronic sinusitis. Mastoid air cells: The mastoid air cells are clear. Salivary glands: The parotid and submandibular glands are unremarkable. Lymph nodes: No adenopathy. Soft tissues: Mild soft tissue swelling over the nasal bridge and left lateral facial/periorbital region. No hematoma. Circumscribed 10 mm subdermal nodule in the right lower face does not appear to be associated with the parotid gland, favor incidental sebaceous cyst or inclusion epidermoid. Brain: No acute intracranial findings. Pharynx: The parapharyngeal spaces are unremarkable. The nasopharynx is unremarkable. The oropharynx is unremarkable. The hypopharynx is unremarkable. Larynx: Normal epiglottis. Other findings: No foreign body. IMPRESSION: 1. Bilateral nasal bone fractures with mild soft tissue swelling over the nasal bridge, with similar appearance to CT scan 06/25/2022, probably chronic changes of remote prior fracture although correlate clinically for superimposed acute injury. 2. No other facial fractures. 3. Additional soft tissue swelling over the left lateral facial region with no underlying fracture or foreign body in this region. Orbital contents are normal. 4. Changes of acute on chronic sinusitis involving the right maxillary and sphenoid sinuses.
--- NOTE | 2022-11-10 23:44 | XR_ITS ---
PROCEDURE INFORMATION: Exam: XR Chest Exam date and time: 11/11/2022 12:32 AM Age: 77 years old Clinical indication: Chest wall pain; Additional info: Trauma TECHNIQUE: Imaging protocol: Radiologic exam of the chest. Views: 1 view. COMPARISON: CR XR CHEST PORTABLE 07/11/2022 9:41 PM FINDINGS: Lungs: Low lung volumes. Pulmonary vasculature grossly normal. No gross pulmonary infiltrates or edema pattern. Mild bandlike atelectasis or scarring in the peripheral right mid lung and peripheral left base. Pleural spaces: No pleural effusion. No pneumothorax. Heart/Mediastinum: Heart size normal. No tracheal/mediastinal shift. Bones/joints: No acute osseous abnormalities are identified. Osteopenia. Mild thoracic spondylosis. IMPRESSION: No acute thoracic process.
--- NOTE | 2022-11-10 23:44 | CT_ITS ---
PROCEDURE INFORMATION: Exam: CT Head Without Contrast Exam date and time: 11/11/2022 12:11 AM Age: 77 years old Clinical indication: Pain; Other: Fall; Additional info: Trauma TECHNIQUE: Imaging protocol: Computed tomography of the head without contrast. Radiation optimization: All CT scans at this facility use at least one of these dose optimization techniques: automated exposure control; mA and/or kV adjustment per patient size (includes targeted exams where dose is matched to clinical indication); or iterative reconstruction. REPORTING DATA: Count of CT and Cardiac NM exams in prior 12 months: This patient has received 6 known CTs and 0 known cardiac nuclear medicine studies in the 12 months prior to the current study. COMPARISON: CT HEAD/BRAIN WO CON 06/25/2022 8:11 PM FINDINGS: Brain: Moderate generalized cerebral/cerebellar atrophy. Moderate bilateral white matter hypodensities which are nonspecific but most commonly associated with chronic microvascular ischemia in this age group. The IACs are grossly normal. No extra-axial fluid collections. No evidence of acute intracranial hemorrhage. No CT evidence of large territory acute or subacute intracranial ischemia/infarct. No intracranial mass lesions. No midline shift or herniation. Cerebral ventricles: Moderate compensatory ventriculomegaly secondary to central atrophy. Pituitary gland and sella: The sella is grossly normal. Paranasal sinuses: Mucosal thickening in the right maxillary sinus and right sphenoid sinus with fluid level in the right sphenoid sinus suggesting changes of acute on chronic sinusitis. No sinus fractures are visualized. Mastoid air cells: Visualized mastoid air cells are clear. Orbital cavities: No acute intraorbital findings. Bones/joints: Calvarium intact.Hyperostosis frontalis interna incidentally noted. Soft tissues: Mild soft tissue swelling over the left facial/lateral periorbital region with no underlying fracture or foreign body. Mild soft tissue swelling over the nasal bridge with underlying contour irregularity of the nasal bones which may represent chronic changes of prior fracture given the similarity to scan 06/25/2022, although elements of minimally displaced acute nasal bone fracture not excluded. Vasculature: Mild calcific atherosclerosis. No asymmetric vascular hyperdensities suggestive of thrombosis are identified. Other findings: Fragoso-white matter differentiation is well maintained. IMPRESSION: 1. No acute intracranial process. No intracranial hemorrhage or mass effect. 2. Atrophy and microvascular changes consistent with age. 3. Soft tissue swelling over the nasal bridge and in the leftward face. There are nasal bone fractures present which may be chronic, similar to 06/25/2022, although can not definitively exclude superimposed acute fracture. 4. Changes of acute on chronic sinusitis.
--- NOTE | 2022-11-10 23:44 | CT_ITS ---
PROCEDURE INFORMATION: Exam: CT Cervical Spine Without Contrast Exam date and time: 11/11/2022 12:15 AM Age: 77 years old Clinical indication: Pain; Additional info: Trauma TECHNIQUE: Imaging protocol: Computed tomography of the cervical spine without contrast. Radiation optimization: All CT scans at this facility use at least one of these dose optimization techniques: automated exposure control; mA and/or kV adjustment per patient size (includes targeted exams where dose is matched to clinical indication); or iterative reconstruction. REPORTING DATA: Count of CT and Cardiac NM exams in prior 12 months: This patient has received 6 known CTs and 0 known cardiac nuclear medicine studies in the 12 months prior to the current study. COMPARISON: CT CERVICAL SPINE WO CON 06/25/2022 8:16 PM FINDINGS: Bones/joints: Craniocervical alignment is normal. The occipital condyles are intact. The odontoid is intact. Moderate-severe osteoarthritic sclerosis and spurring at the atlantodens interval. No jumped or perched facets. Moderate left-sided facet hypertrophy C3-C4. Moderate right-sided facet hypertrophy C2-C3 and C3-C4 with ankylosis at C2-C3. No fractures. Reversal of cervical lordosis may be positional or degenerative in nature, versus changes of muscular strain/spasm. Moderate-severe disc space narrowing with endplate erosion, endplate sclerosis, and moderate marginal spurring C4-C5 through C6-C7, with moderate disc degenerative changes C3-C4. No compressive soft disc protrusion or extrusion is evident by CT. Multilevel posterior spondylotic protrusions, greatest at C4-C5 measuring 3.7 mm AP. Severe canal stenosis C4-C5, 5.5 mm AP. Moderate canal stenosis C3-C4 and C5-C6. Mild canal stenosis C6-C7. There is left-sided foraminal stenosis which is moderate-severe C3-C4 through C6-C7. There is right-sided foraminal stenosis which is moderate at C3-C4, severe C4-C5, and moderate-severe C5-C6 and C6-C7. Lungs: Visualized pulmonary apices are clear. Thyroid: Masslike enlargement of the left thyroid lobe with partial calcification measuring up to 3.5 x 1.7 cm. Recommend nonemergent thyroid ultrasound evaluation. Vasculature: Moderate calcific atherosclerosis in the right carotid bulb. Soft tissues: Paraspinous soft tissues are unremarkable without significant soft tissue swelling or soft tissue hematoma. IMPRESSION: 1. No evidence of fracture or acute traumatic subluxation. 2. Osteopenia and osteoarthritic changes with canal and foraminal stenoses detailed above. 3. There is 3.5 cm partially calcified masslike enlargement of the left thyroid lobe. Recommend nonemergent thyroid ultrasound evaluation.
[2022-11-11] VITALS: BP 146/95; PULSE 88; RESP 18; O2SAT 96
--- NOTE | 2022-11-11 00:05 | HMH.EDGENADL ---
Discharge Plan Disposition Patient Disposition: Xfer Short-Term Hosp Condition: Fair Prescriptions Prescriptions: New amoxicillin-pot clavulanate 875-125 mg tablet 1 tab PO BID Qty: 20 0RF No Action donepezil 10 MG tablet 10 mg PO DAILY metoprolol succinate 100 MG tablet extended release 24 hr 100 mg PO DAILY acetaminophen 500 MG tablet 500 mg PO DAILY potassium chloride 20 MEQ tablet 20 meq PO DAILY divalproex 125 MG tablet,delayed release (DR/EC) 125 mg PO BID aspirin 81 MG tablet,chewable 81 mg PO DAILY memantine 1 EACH tablets,dose pack 1 tab PO HS quetiapine 50 MG tablet 50 mg PO BID mirabegron 50 MG tablet extended release 24 hr 50 mg PO DAILY colchicine 0.6 MG capsule 0.6 mg PO DAILY pantoprazole 40 MG tablet,delayed release (DR/EC) 40 mg PO HS clindamycin phosphate 5 GM cream,extended release 5 gm VG DAILY ceftriaxone 1 gram recon soln 1 g IV DAILY Qty: 10 0RF hydrocodone-acetaminophen 1 TAB tablet 1 tab PO Q8HP PRN (Reason: Pain) Qty: 90 0RF Referrals Follow up/Referrals: Provider,Referral, MD [Primary Care Provider] - See instructions Clinical Impressions Clinical Impression: Sinusitis, acute ethmoidal, Fall, Sinusitis, acute maxillary Print Language Print Language: Portuguese Discharge ED Provider: Eusebio Sam General Adult HPI General Chief complaint: Fall Stated complaint: Unwitnessed fall, facial bruising and swelling Time Seen by Provider: 11/11/22 01:05 Mode of Arrival: EMS Source of Information: EMS Limitations: Altered Mental Status Description of Symptoms (Recalled from ER Triage Doc. by RN): Pt e/ hx of Alzheimers had an unwitnessed fall tonight. Pt knows her name and and does report falling. She denies hitting her head or any injuries. No obvious injuries noted on exam of pt other than small bruise on her nose History of Present Illness HPI narrative: Patient presents to the emergency department after reportedly being found by her nursing staff at the assisted half on the bed and half off. She was suspected to have a fall. She does have noted bruising by EMS to her face. Patient has progressive dementia and is unable to provide any medical history at this time. No other significant information is known Related Data Home Medications Medication Instructions Recorded Confirmed acetaminophen 500 mg tablet 500 mg PO DAILY Pain 08/04/22 08/22/22 aspirin 81 mg chewable tablet 81 mg PO DAILY Heart disease 03/22/22 04/08/22 colchicine 0.6 mg capsule 0.6 mg PO DAILY gout 03/22/22 04/08/22 divalproex 125 mg tablet,delayed 125 mg PO BID dementia 03/22/22 04/09/22 release donepezil 10 mg tablet 10 mg PO DAILY dementia 03/22/22 04/08/22 memantine 5 mg-10 mg tablets in a 1 tab PO HS dementia 03/22/22 04/09/22 dose pack metoprolol succinate 100 mg 100 mg PO DAILY High blood pressure 03/22/22 04/09/22 tablet,extended release 24 hr mirabegron 50 mg tablet,extended 50 mg PO DAILY bladder spasms 03/22/22 04/09/22 release 24 hr potassium chloride 20 mEq 20 meq PO DAILY Supplement 03/22/22 04/09/22 tablet,extended release(part/cryst) quetiapine 50 mg tablet 50 mg PO BID dementia 03/22/22 04/09/22 clindamycin phosphate 2 % vaginal 5 gm vaginal DAILY Infection 04/09/22 04/09/22 cream,extended release pantoprazole 40 mg tablet,delayed 40 mg PO HS acid reflux 04/09/22 04/09/22 release Previous Rx's Medication Instructions Recorded ceftriaxone 1 gram intravenous 1 g IV DAILY #10 ea 04/12/22 solution hydrocodone 5 mg-acetaminophen 325 1 tab PO Q8HP PRN Pain #90 tabs 04/12/22 mg tablet amoxicillin 875 mg-potassium 1 tab PO BID #20 tabs 11/11/22 clavulanate 125 mg tablet Allergies Allergy/AdvReac Type Severity Reaction Status Date / Time No Known Allergies Allergy Verified 02/23/22 10:30 [facility] Disclaimer: The information contained in this secti
[2022-11-11 00:31] VITALS: BP 135/91; PULSE 94; RESP 18; O2SAT 96
[2022-11-11 01:01] VITALS: BP 147/87; PULSE 96; RESP 20; O2SAT 97
--- NOTE | 2022-11-11 01:22 | PC.NURSE ---
called [facility] per pt transfer back to [facility]
[2022-11-11 01:30] VITALS: BP 158/87; PULSE 97; RESP 20; O2SAT 97
[2022-11-11 01:49] VITALS: BP 158/85; PULSE 90; RESP 20; TEMP 36.8; O2SAT 95
== END 2022-11-11 01:51 | disposition short-term general hospital (02) ==
PROVIDERS: Emergency Provider Emergency Medicine
DX: J01.20 Acute ethmoidal sinusitis, unspecified (principal); J01.00 Acute maxillary sinusitis, unspecified; S00.93XA Contusion of unspecified part of head, initial encounter
CPT/HCPCS: 70450; 70486; 71045; 72125; 99284; 99285

== ENCOUNTER 2022-11-19 17:16 | Observation (INO) | payer MEDICARE, MEDICAID, SELFPAY ==
[2022-11-19 17:16] VITALS: BP 128/80; PULSE 96; RESP 19; TEMP 37.9; O2SAT 94; BMI 29.8
--- NOTE | 2022-11-19 17:24 | HMH.EDGENADL ---
Discharge Plan Disposition Patient Disposition: Admitted As Inpatient Prescriptions Prescriptions: No Action donepezil 10 MG tablet 10 mg PO DAILY metoprolol succinate 100 MG tablet extended release 24 hr 100 mg PO DAILY acetaminophen 500 MG tablet 500 mg PO DAILY potassium chloride 20 MEQ tablet 20 meq PO DAILY divalproex 125 MG tablet,delayed release (DR/EC) 125 mg PO BID aspirin 81 MG tablet,chewable 81 mg PO DAILY memantine 1 EACH tablets,dose pack 1 tab PO HS quetiapine 50 MG tablet 50 mg PO BID mirabegron 50 MG tablet extended release 24 hr 50 mg PO DAILY colchicine 0.6 MG capsule 0.6 mg PO DAILY pantoprazole 40 MG tablet,delayed release (DR/EC) 40 mg PO HS clindamycin phosphate 5 GM cream,extended release 5 gm VG DAILY ceftriaxone 1 gram recon soln 1 g IV DAILY Qty: 10 0RF hydrocodone-acetaminophen 1 TAB tablet 1 tab PO Q8HP PRN (Reason: Pain) Qty: 90 0RF amoxicillin-pot clavulanate 875-125 mg tablet 1 tab PO BID Qty: 20 0RF Clinical Impressions Clinical Impression: Severe sepsis, Acute UTI, Encephalopathy acute Instructions Patient Instructions: DI for Altered Mental Status Discharge ED Provider: Pasquale Campos General Adult HPI General Chief complaint: Altered Mental Status Stated complaint: ams Time Seen by Provider: 11/19/22 17:24 History of Present Illness HPI narrative: 77-year-old female brought in by EMS from [facility] for altered mental status and fever. She had a similar presentation back in May where she had E. coli bacteremia and had a PICC line placed that was susceptible to Rocephin and had prolonged course of IV Rocephin. Her altered mental status is described as increased somnolence and she has been febrile as as well. History is limited from her given her clinical status. Related Data Home Medications Medication Instructions Recorded Confirmed acetaminophen 500 mg tablet 500 mg PO DAILY Pain 03/22/22 04/09/22 aspirin 81 mg chewable tablet 81 mg PO DAILY Heart disease 03/22/22 04/08/22 colchicine 0.6 mg capsule 0.6 mg PO DAILY gout 03/22/22 04/08/22 divalproex 125 mg tablet,delayed 125 mg PO BID dementia 03/22/22 04/09/22 release donepezil 10 mg tablet 10 mg PO DAILY dementia 03/22/22 04/08/22 memantine 5 mg-10 mg tablets in a 1 tab PO HS dementia 03/22/22 04/09/22 dose pack metoprolol succinate 100 mg 100 mg PO DAILY High blood pressure 03/22/22 04/09/22 tablet,extended release 24 hr mirabegron 50 mg tablet,extended 50 mg PO DAILY bladder spasms 03/22/22 04/09/22 release 24 hr potassium chloride 20 mEq 20 meq PO DAILY Supplement 03/22/22 04/09/22 tablet,extended release(part/cryst) quetiapine 50 mg tablet 50 mg PO BID dementia 03/22/22 04/09/22 clindamycin phosphate 2 % vaginal 5 gm vaginal DAILY Infection 04/09/22 04/09/22 cream,extended release pantoprazole 40 mg tablet,delayed 40 mg PO HS acid reflux 04/09/22 04/09/22 release Previous Rx's Medication Instructions Recorded ceftriaxone 1 gram intravenous 1 g IV DAILY #10 ea 04/12/22 solution hydrocodone 5 mg-acetaminophen 325 1 tab PO Q8HP PRN Pain #90 tabs 04/12/22 mg tablet amoxicillin 875 mg-potassium 1 tab PO BID #20 tabs 11/11/22 clavulanate 125 mg tablet Allergies Allergy/AdvReac Type Severity Reaction Status Date / Time No Known Allergies Allergy Verified 02/23/22 10:30 [facility] Disclaimer: The information contained in this section may have been updated after the patient was seen, as this information can be updated by other users. Social History Smoking Status: Never smoker alcohol intake: never substance use type: denies use current occupational status: retired Travel in the last 8 weeks: None housing: house caffeine: Yes ROS Obtained: Yes All systems reviewed & no additional compla
[2022-11-19 18:04] LABS: Chloride 109 mmol/L (98-107); Potassium 4.3 mmoL/L (3.5-5.1); Sodium 140 mmol/L (136-145)
[2022-11-19 18:05] LABS: Microscopic, Urine URINE MICROSCOPIC (MICROSCOPIC)
[2022-11-19 18:06] LABS: Basophils # 0.1 K/mm3 (0-0.2); Basophils % 0.6 % (0.1-2.0); Eosinophils # 0.1 K/mm3 (0.0-0.4); Eosinophils % 0.8 % (0.1-12.0); Hematocrit 46.2 % (37.0-47.0); Hemoglobin 15.1 g/dL (12.2-16.2); Lymphocytes # 3.2 K/mm3 (0.7-4.5); Lymphocytes % 18.4 % (10-50); Mean Corpuscular HGB Conc 32.6 g/dL (31.8-35.4); Mean Corpuscular Hemoglobin 30.3 pg (27.0-31.2); Mean Corpuscular Volume 92.9 fl (81-99); Mean Platelet Volume 7.8 fl (7.4-10.4); Monocytes # 0.9 K/mm3 (0.1-1.0); Monocytes % 5.4 % (1.7-9.3); Neutrophils # 13.1 K/mm3 (1.8-7.8); Neutrophils % 74.8 % (37.0-80.0); Platelet Count 448 K/mm3 (142-424); Red Blood Count 4.97 M/mm3 (4.20-5.40); Red Cell Distribution Width 14.3 % (11.5-17.5); White Blood Count 17.6 K/mm3 (4.8-10.8)
[2022-11-19 18:07] LABS: Alanine Aminotransferase 13 U/L (12-78); Albumin Level 3.5 g/dl (3.5-5.0); Albumin/Globulin Ratio 0.9 (1.1-1.8); Alkaline Phosphatase 106 U/L (38-126); Anion Gap 10.3 mEq/L (5-15); Aspartate Amino Transferase 23 U/L (14-36); Blood Urea Nitrogen 10 mg/dl (7-17); Calcium 9.1 mg/dl (8.4-10.2); Carbon Dioxide 25 mmol/L (22.0-30.0); Creatinine Clearance Estimated 55 mL/min (50-200); Estimated Glomerular Filt Rate 82 ml/min (>60); GFR (African American) 99 ML/MIN (>60); Globulin 3.9 g/dL (1.3-3.2); Glucose 107 mg/dl (74-100); Total Protein,Serum 7.4 g/dl (6.3-8.2)
[2022-11-19 18:09] LABS: MANUAL DIFFERENTIAL MANUAL DIFFERENTIAL (MANUAL DIFF)
--- NOTE | 2022-11-19 18:09 | XR_ITS ---
PROCEDURE INFORMATION: Exam: XR Chest Exam date and time: 11/19/2022 6:41 PM Age: 77 years old Clinical indication: Patient HX: Severe AMS, patients body is severely contorted to right. Unable to straighten her for better film. ; Additional info: Dyspnea TECHNIQUE: Imaging protocol: Radiologic exam of the chest. Views: 1 view. COMPARISON: CR XR CHEST PORTABLE 11/11/2022 12:32 AM FINDINGS: Lungs: Low lung volumes, limiting evaluation of lung bases. No definite acute airspace consolidation. Pleural spaces: No large pleural effusion. No pneumothorax. Heart/Mediastinum: Cardiomediastinal silhouette is unchanged, accounting for differences in technique. Bones/joints: No evidence of acute osseous abnormality. IMPRESSION: No evidence of acute cardiopulmonary disease, noting low lung volumes limits evaluation of the lung bases.
--- NOTE | 2022-11-19 18:09 | CT_ITS ---
PROCEDURE INFORMATION: Exam: CT Head Without Contrast Exam date and time: 11/19/2022 6:25 PM Age: 77 years old Clinical indication: Condition or disease; Other: Severe AMS; Patient HX: Best study possible due to patient's body twisted to the right. TECHNIQUE: Imaging protocol: Computed tomography of the head without contrast. Radiation optimization: All CT scans at this facility use at least one of these dose optimization techniques: automated exposure control; mA and/or kV adjustment per patient size (includes targeted exams where dose is matched to clinical indication); or iterative reconstruction. REPORTING DATA: Count of CT and Cardiac NM exams in prior 12 months: This patient has received 7 known CTs and 0 known cardiac nuclear medicine studies in the 12 months prior to the current study. COMPARISON: CT HEAD/BRAIN WO CON 11/11/2022 12:11 AM FINDINGS: Limitations: Off-orthogonal acquisition limits sensitivity of exam. Brain: Global cerebral volume loss. No large intra- or extra-axial fluid collection. No significant mass effect or midline shift. Lux-white matter differentiation is grossly intact. Periventricular and subcortical white matter hypodensities, compatible with chronic hypertensive microvascular disease. Cerebral ventricles: No hydrocephalus. Paranasal sinuses: No air fluid levels in the visualized paranasal sinuses. Mastoid air cells: Visualized mastoid air cells are well aerated. Bones/joints: Disproportionate calvarial hyperostosis of the frontal bones with hypertrophic nodularity along the inner table consistent with hyperostosis frontalis interna. No acute calvarial or skull base fracture. Soft tissues: Unremarkable. IMPRESSION: 1. No evidence of acute intracranial abnormality within the limits of this exam. 2. White matter changes compatible with chronic hypertensive microvascular disease. 3. Global cerebral volume loss. 4. Hyperostosis frontalis interna. Findings are nonspecific, but can be associated with various neuropsychiatric symptoms and/or endocrine disorders. Please correlate with patient history and blood chemistries.
[2022-11-19 18:12] LABS: Appearance,Urine SL CLOUDY (Clear); Blood, Urine Negative (Negative); Color,Urine YELLOW (Yellow); Glucose,Urine (UA) Negative (Negative); Ketones,Urine Negative (Negative); Leukocyte Esterase,Urine 1+ (Negative); Nitrate,Urine Negative (Negative); Protein,Urine 1+ (Negative); Specific Gravity, Urine 1.025 (1.005-1.030); Urobilinogen,Urine 0.2 EU/dl (0.2)
--- NOTE | 2022-11-19 18:18 | PC.NURSE ---
covid/flu swab sent to lab
[2022-11-19 18:24] LABS: Bilirubin,Urine 1+ (Negative)
[2022-11-19 18:27] LABS: Squamous Epithelial Cell,Urine Occasional #/hpf (0-5)
[2022-11-19 18:29] LABS: Coronavirus 19, PCR Not Detected (NotDetected); Influenza A, PCR Not Detected (NotDetected); Influenza B, PCR Not Detected (NotDetected)
[2022-11-19 18:51] LABS: Eosinophils % 3 % (0-3); Lymphocytes % 23 % (10-50); Monocytes % 4 % (2-9); Neutrophils % 70 % (42-76); Platelet Estimate Normal; RBC Morphology Normal; Total Cells Counted 100
[2022-11-19 19:01] VITALS: BP 132/88; PULSE 78; O2SAT 95
[2022-11-19 19:19] VITALS: BP 147/98; PULSE 78; O2SAT 93
--- NOTE | 2022-11-19 19:25 | PC.NURSE ---
Attempted to call report, nurse unavailable at this time. States will called back.
[2022-11-19 19:35] VITALS: BP 141/91; PULSE 76; RESP 17; TEMP 37; O2SAT 94
--- NOTE | 2022-11-19 19:46 | PC.NURSE ---
Attempted to call report, nurse continues to be unavailable to receive report. Notified painter supervisor of delayed admission.
[2022-11-19 20:00] VITALS: BP 141/75; PULSE 81; RESP 16; TEMP 37.1; O2SAT 98; BMI 29.0
--- NOTE | 2022-11-19 20:07 | PC.NURSE ---
Gave report to Norris JAMISON @ [phone]
--- NOTE | 2022-11-20 01:23 | PC.NURSE ---
scuds placed to bilateral legs.
[2022-11-20 04:00] VITALS: BP 133/72; PULSE 88; RESP 18; TEMP 36.9; O2SAT 94; BMI 29.0
--- NOTE | 2022-11-20 04:14 | PC.NURSE ---
Pt. is confused and was verbal throughout part of the night. She is a turn every two hours and has a brief on with a purewick. Buttocks and both heals are red and blanchable. Scuds applied and hells elevated on a pillow. No issues noted.
[2022-11-20 08:00] VITALS: BP 153/84; PULSE 92; RESP 19; TEMP 36.2; O2SAT 94
[2022-11-20 08:45] LABS: Basophils # 0.1 K/mm3 (0-0.2); Basophils % 0.8 % (0.1-2.0); Eosinophils # 0.1 K/mm3 (0.0-0.4); Eosinophils % 0.8 % (0.1-12.0); Hemoglobin 14.8 g/dL (12.2-16.2); Lymphocytes # 2.6 K/mm3 (0.7-4.5); Lymphocytes % 15.9 % (10-50); Mean Corpuscular HGB Conc 30.8 g/dL (31.8-35.4); Mean Corpuscular Volume 94.1 fl (81-99); Mean Platelet Volume 6.8 fl (7.4-10.4); Monocytes # 1.1 K/mm3 (0.1-1.0); Monocytes % 6.4 % (1.7-9.3); Neutrophils # 12.5 K/mm3 (1.8-7.8); Neutrophils % 76.2 % (37.0-80.0); Platelet Count 350 K/mm3 (142-424); Red Cell Distribution Width 14.3 % (11.5-17.5); White Blood Count 16.5 K/mm3 (4.8-10.8)
--- NOTE | 2022-11-20 08:45 | PC.NURSE ---
Pt. sister, Idamarlon Marin, given update on pt. condition.
[2022-11-20 08:47] LABS: MANUAL DIFFERENTIAL MANUAL DIFFERENTIAL (MANUAL DIFF)
[2022-11-20 09:02] LABS: Chloride 108 mmol/L (98-107); Potassium 4.1 mmoL/L (3.5-5.1); Sodium 139 mmol/L (136-145)
[2022-11-20 09:05] LABS: Anion Gap 12.1 mEq/L (5-15); Blood Urea Nitrogen 8 mg/dl (7-17); Carbon Dioxide 23 mmol/L (22.0-30.0); Creatinine Clearance Estimated 54 mL/min (50-200); Estimated Glomerular Filt Rate 97 ml/min (>60); GFR (African American) 118 ML/MIN (>60)
[2022-11-20 09:06] LABS: Calcium 8.8 mg/dl (8.4-10.2); Glucose 94 mg/dl (74-100)
[2022-11-20 09:09] LABS: Lymphocytes % 17 % (10-50); Monocytes % 5 % (2-9); Neutrophils % 78 % (42-76); Platelet Estimate Normal; RBC Morphology Normal; Total Cells Counted 100
--- NOTE | 2022-11-20 09:20 | DIET.NUTRFU ---
[facility]. She follows a MSOFT/thin liquids ground solids. Called [facility] to verify. She needs to be feed. She takes a milkshake with meals at [facility] likes chocolate and strawberry. Her intake has been poor, has lost 16.2kg in 10days. She is on remeron at hospital which may help with appetite. She has dementia, nurse at [facility] did report some behaviors when feeling good, name calling and slapping spoon out of your hand. She was unable to answer questions for RD today. Our staff provided 1:1 assistance with meals, her she consumed 50% eggs, 75% sausage and biscuits and they reported she did really well with liquids. Will restart shakes with meals. Notified telephonic case manager she triggers for severe PCM based on weight loss and padilla of intake. Will continue to monitor
--- NOTE | 2022-11-20 09:27 | P.CONPHA_ITS ---
Pharmacy Intervention Comments: Reconciled patient's home medications using list from [facility].
--- NOTE | 2022-11-20 09:27 | HMH.PHAINT1 ---
Pharmacy Intervention Comments: Reconciled patient's home medications using list from [facility].
[2022-11-20 09:28] VITALS: BMI 29.0
--- NOTE | 2022-11-20 12:12 | EXP.HPDC ---
General Admission date:: 11/19/22 Discharge date: 11/20/22 *Admission Date: 11/19/22 *Chief complaint: Fever/mental status changes *History of present illness: 77-year-old white female, longtime retirement resident at the [facility] who was sent to the emergency department with fever and altered mental status. In the ER she had work-up that included CT of the head which was nondiagnostic, labs which showed elevated WBC and evidence of leukocytes in her urine. She was admitted with a presumptive diagnosis of SIRS and UTI. Of note her mental status at the retirement is chronically agitated. She had recently come off doxycycline for bronchopneumonia. [facility] Disclaimer: The information contained in this section may have been updated after the patient was seen, as this information can be updated by other users. Social History (Updated 11/20/22 @ 01:18 by Jacoby Lopez RN) Smoking Status: Never smoker alcohol intake: never substance use type: denies use current occupational status: retired Travel in the last 8 weeks: None housing: house caffeine: Yes Review of Systems Review of Systems Review of systems:: unable to obtain Exam Data for Last 24 hours Vital signs and Labs for Last 24 Hours: Temp Pulse Resp BP Pulse Ox 97.1 F L 92 H 19 153/84 H 94 L 11/20/22 08:00 11/20/22 08:00 11/20/22 08:00 11/20/22 08:00 11/20/22 08:00 Laboratory Results - last 24 hr 11/19/22 17:40: WBC 17.6 H, RBC 4.97, Hgb 15.1, Hct 46.2, MCV 92.9, MCH 30.3, MCHC 32.6, RDW 14.3, Plt Count 448 H, MPV 7.8, Neut % (Auto) 74.8, Lymph % (Auto) 18.4, [place] % (Auto) 5.4, Eos % (Auto) 0.8, Baso % (Auto) 0.6, Neut # (Auto) 13.1 H, Lymph # (Auto) 3.2, [place] # (Auto) 0.9, Eos # (Auto) 0.1, Baso # (Auto) 0.1, Total Counted 100, Neutrophils % (Manual) 70, Lymphocytes % (Manual) 23, Monocytes % (Manual) 4, Eosinophils % (Manual) 3, Platelet Estimate Normal, RBC Morphology Normal 11/19/22 17:40: Sodium 140, Potassium 4.3, Chloride 109 H, Carbon Dioxide 25, Anion Gap 10.3, BUN 10, Creatinine 0.70, Estimated Creat Clear 55, Estimated GFR 82, Est GFR ( Amer) 99, Glucose 107 H, Calcium 9.1, Total Bilirubin 1.0, AST 23, ALT 13, Alkaline Phosphatase 106, Total Protein 7.4, Albumin 3.5, Globulin 3.9 H, Albumin/Globulin Ratio 0.9 L 11/19/22 17:40: Lactate 1.0 11/19/22 17:45: Urine Color Yellow, Urine Appearance Sl cloudy, Urine pH 6.0, Ur Specific [place] 1.025, Urine Protein 1+, Urine Glucose (UA) Negative, Urine Ketones Negative, Urine Blood Negative, Urine Nitrate Negative, Urine Bilirubin 1+ A, Urine Urobilinogen 0.2, Ur Leukocyte Esterase 1+ A, Urine WBC 10-20, Ur Squamous Epith Cells Occasional, Urine Bacteria None 11/19/22 18:17: SARS-CoV-2 (PCR) Not detected, Influenza A Untype (PCR) Not detected, Influenza Type B (PCR) Not detected 11/20/22 08:35: WBC 16.5 H, RBC 5.10, Hgb 14.8, Hct 48.0 H, MCV 94.1, MCH 29.0, MCHC 30.8 L, RDW 14.3, Plt Count 350, MPV 6.8 L, Neut % (Auto) 76.2, Lymph % (Auto) 15.9, [place] % (Auto) 6.4, Eos % (Auto) 0.8, Baso % (Auto) 0.8, Neut # (Auto) 12.5 H, Lymph # (Auto) 2.6, [place] # (Auto) 1.1 H, Eos # (Auto) 0.1, Baso # (Auto) 0.1, Total Counted 100, Neutrophils % (Manual) 78 H, Lymphocytes % (Manual) 17, Monocytes % (Manual) 5, Platelet Estimate Normal, RBC Morphology Normal 11/20/22 08:35: Sodium 139, Potassium 4.1, Chloride 108 H, Carbon Dioxide 23, Anion Gap 12.1, BUN 8, Creatinine 0.60, Estimated Creat Clear 54, Estimated GFR 97, Est GFR ( Amer) 118, Glucose 94, Calcium 8.8 I & O for Last 24 hours: Intake & Output 11/18/22 11/19/22 11/20/22 11/21/22 11:59 11:59 11:59 11:59 Output Total 0 / 0 Balance 0 / 0 Weight 153 lb 15.181 oz Microbiology Reports for the Last 24 Hours: Microbiology 04/08/22 22:11 Urine,Catheterized Urine Culture - Preliminary Gram Negative Rods Gram Negative Rods#2 Constitutional Constit
--- NOTE | 2022-11-21 14:01 | CARE MANAGER ---
Contacted [place]. They state patient is at her baseline. They deny any questions or concerns. YAQUELIN Hightower
== END 2022-11-20 13:10 ==
LOC: ER 18:38 → 2ND 19:10
PROVIDERS: Admitting Provider Family Medicine; Emergency Provider Student in an Organized Health Care Education/Training Program; Visit Provider Internal Medicine Adolescent Medicine
DX: N39.0 Urinary tract infection, site not specified (principal); Z79.899 Other long term (current) drug therapy; I10 Essential (primary) hypertension; G93.40 Encephalopathy, unspecified; Z20.822 Contact with and (suspected) exposure to COVID-19
CPT/HCPCS: G0378; 36415; 70450; 71045; 80048; 80053; 81001; 83605; 85007; 85025; 87040; 87086; 99285; C9803; J0696; U0003; U0005

== ENCOUNTER → 2022-12-01 19:23 | Outpatient (CLI) | payer MEDICARE, MEDICAID, SELFPAY ==
[2022-12-01 19:49] LABS: Basophils # 0.1 K/mm3 (0-0.2); Basophils % 0.5 % (0.1-2.0); Eosinophils # 0.2 K/mm3 (0.0-0.4); Eosinophils % 1.4 % (0.1-12.0); Hematocrit 43.5 % (37.0-47.0); Hemoglobin 13.6 g/dL (12.2-16.2); Lymphocytes # 3.2 K/mm3 (0.7-4.5); Mean Corpuscular HGB Conc 31.3 g/dL (31.8-35.4); Mean Corpuscular Hemoglobin 29.3 pg (27.0-31.2); Mean Corpuscular Volume 93.5 fl (81-99); Mean Platelet Volume 7.9 fl (7.4-10.4); Monocytes # 0.5 K/mm3 (0.1-1.0); Monocytes % 4.3 % (1.7-9.3); Neutrophils # 8.3 K/mm3 (1.8-7.8); Neutrophils % 67.7 % (37.0-80.0); Platelet Count 394 K/mm3 (142-424); Red Blood Count 4.65 M/mm3 (4.20-5.40); Red Cell Distribution Width 14.2 % (11.5-17.5); White Blood Count 12.3 K/mm3 (4.8-10.8)
[2022-12-01 20:19] LABS: Chloride 109 mmol/L (98-107); Potassium 4.7 mmoL/L (3.5-5.1); Sodium 142 mmol/L (136-145)
[2022-12-01 20:22] LABS: Blood Urea Nitrogen 7 mg/dl (7-17); Estimated Glomerular Filt Rate 120 ml/min (>60); GFR (African American) 146 ML/MIN (>60)
[2022-12-01 20:23] LABS: Anion Gap 11.7 mEq/L (5-15); Calcium 8.6 mg/dl (8.4-10.2); Carbon Dioxide 26 mmol/L (22.0-30.0); Glucose 94 mg/dl (74-100)
== END ==
PROVIDERS: Nurse Practitioner Family; PCP Internal Medicine Adolescent Medicine; Visit Provider Internal Medicine Adolescent Medicine
DX: M62.81 Muscle weakness (generalized) (principal)
CPT/HCPCS: 80048; 85025